=== PATIENT | male | born 1965 | race Caucasian/White ===

== ENCOUNTER → 2016-11-10 | Outpatient (CLI) | payer BC ==
[~2016-11-10] MED LIST: AMLO5TAB2 PO; BUPR-79 PO; CHOL2000 PO; ESCI1TAB9 PO; FRRS300 PO; HYDR25TA4 PO; LEVO75TA5 PO; LISI-461 PO; LISI-725 PO; MULT-506 PO; MULTTAB PO; RTL20 PO; TRAM-10 PO
[2016-11-10 14:56] LABS: HEMATOCRIT 39.4 % (42-52); MEAN CELL VOLUME 90.6 fL (80-100); MEAN CORPUSCULAR HEMOGLOBIN 32.4 pg (25-34); MEAN CORPUSCULAR HGB CONC 35.8 g/dl (32-36); MEAN PLATELET VOLUME 10.2 fL (7.4-10.4); PLATELET COUNT 276 K/uL (130-400); RED BLOOD COUNT 4.35 M/uL (4.7-6.1); URINE APPEARANCE CLEAR (CLEAR); URINE BILIRUBIN NEG (NEG); URINE COLOR YELLOW; URINE EPITHELIAL CELL AUTO 0-5 /lpf (0-5); URINE NITRITE NEG (NEG); URINE SPECIFIC GRAVITY 1.009 (1.000-1.030); UROBILINOGEN NEG (NEG); WHITE BLOOD COUNT 8.98 K/uL (4.8-10.8)
[2016-11-10 15:04] LABS: ALT/SGPT 38 U/L (12-78); AST/SGOT 26 U/L (15-37); BLOOD UREA NITROGEN 54 mg/dl (7-18); BUN/CREATININE RATIO 15.3 (10-20); CALCIUM 9.2 mg/dl (8.5-10.1); CARBON DIOXIDE 24 mmol/L (21-32); CHLORIDE 106 mmol/L (98-107); GLUCOSE 103 mg/dl (70-99); POTASSIUM 4.8 mmol/L (3.5-5.1); SODIUM 139 mmol/L (136-145)
[2016-11-10 15:06] LABS: ALB/GLOB RATIO 1.1 (0.9-2); ALKALINE PHOSPHATASE 59 U/L (45-117)
[2016-11-10 15:08] LABS: MANUAL MICROSCOPIC REQUIRED? NO; REVIEW REQ? NO
[2016-11-10 15:11] LABS: HEPATITIS B AB POS
[2016-11-10 15:21] LABS: URINE PROTIEN/CREAT RATIO 0.7 (0-0.2); URINE TOTAL PROTEIN 64.8 mg/dl (0-11.9)
== END | disposition home or self-care (01) ==
LOC: C.LAB1850 13:28
PROVIDERS: ATTEND Surgery
DX: Z01.818 Encounter for other preprocedural examination (principal); I12.9 Hypertensive chronic kidney disease with stage 1 through stage 4 chronic kidney disease, or unspecified chronic kidney disease; N18.4 Chronic kidney disease, stage 4 (severe); Q61.2 Polycystic kidney, adult type; E78.00 Pure hypercholesterolemia, unspecified

== ENCOUNTER → 2016-12-14 | Day surgery (SDC) | payer BC, OTHER ==
[2016-12-03 08:59] VITALS: BMI 28.0
--- NOTE | 2016-12-03 09:34 | PAT Medication Instructions ---
Service Date Dec 03, 2016. Current Home Medication List Amlodipine Besylate (Norvasc), 2.5 MG PO QAM Bupropion (Wellbutrin Sr), 150 MG PO am/noon Cholecalciferol (Vitamin D3), 1 CAP PO QAM Escitalopram Oxalate (Lexapro), 10 MG PO QAM Hydrochlorothiazide (Hctz), 25 MG PO QAM Levothyroxine Sodium (Levothyroxine Sodium), 1 TAB PO 0300 Lisinopril (Zestril), 20 MG PO QAM Lisinopril (Zestril), 10 MG PO QPM Methylphenidate (Ritalin), 20 MG PO AM/NOON Multivitamin (Multivitamin), 1 TAB PO QAM Medication Instructions For Your Scheduled Surgery - Hold the following medications the morning of surgery: Hydrochlorothiazide (Hctz), 25 MG PO QAM Lisinopril (Zestril), 20 MG PO QAM Multivitamin (Multivitamin), 1 TAB PO QAM Cholecalciferol (Vitamin D3), 1 CAP PO QAM Methylphenidate (Ritalin), 20 MG PO AM/NOON - TAKE the following medications the morning of surgery with a sip of water OTHERWISE NOTHING TO EAT OR DRINK AFTER MIDNIGHT: Amlodipine Besylate (Norvasc), 2.5 MG PO QAM Bupropion (Wellbutrin Sr), 150 MG PO am/noon Escitalopram Oxalate (Lexapro), 10 MG PO QAM Levothyroxine Sodium (Levothyroxine Sodium), 1 TAB PO 0300 - Hold the following medications the evening before surgery: Lisinopril (Zestril), 10 MG PO QPM If you have any questions please call us at [phone] (Karin Tariq PA-C) or [phone] or [phone]
[2016-12-03 09:54] LABS: BASO % 0.5 %; BASO ABS # 0.03 K/uL (0-0.2); COMPLETE YES; EOS % 3.1 %; HEMATOCRIT 38.6 % (42-52); IG% 0.2 %; LYMPH % 25.8 %; MEAN CELL VOLUME 91.9 fL (80-100); MEAN CORPUSCULAR HEMOGLOBIN 32.1 pg (25-34); MEAN PLATELET VOLUME 10.1 fL (7.4-10.4); NEUT % 64.4 %; PLATELET COUNT 220 K/uL (130-400); WHITE BLOOD COUNT 5.81 K/uL (4.8-10.8)
[2016-12-03 10:03] LABS: PARTIAL THROMBOPLASTIN RATIO 1.1; PROTHROMBIN TIME (PATIENT) 10.9 SECONDS (9.0-12.0)
[2016-12-03 10:15] LABS: BUN/CREATININE RATIO 12.4 (10-20); CREATININE 3.6 mg/dl (0.60-1.40); POTASSIUM 4.9 mmol/L (3.5-5.1)
--- NOTE | 2016-12-03 11:07 | DIAGNOSTIC IMAGING REPORT ---
CHEST PREADMISSION(PA/LAT) HISTORY: Preop. COMPARISON: Chest 10/09/2012. FINDINGS: There is again noted suture material within the lung apices. Otherwise, the lungs are clear. Stable mild right apical pleural thickening. No pleural effusions. No pneumothorax. The heart is normal in size. IMPRESSION: No significant change compared to the prior study. No acute process. Electronically signed by: Davon Wells M.D. 12/03/2016 11:05 AM Dictated Date/Time: 12/03/2016 11:03 AM
[~2016-12-14] VITALS: Ht 180.3 cm; Wt 92.7 kg
[~2016-12-14] MED LIST changes: +ATROPINE SULFATE 0.1 MG/ML 5ML SYR IV PRN; +BUPIVACAINE/EPINEPHRINE 0.5% MPF 1:200,000 30 ML VIAL INFIL ONE; +CEFAZOLIN IV 1,000 MG in DEXTROSE 5% 50ML 50 ML IV ONE; +CEFAZOLIN SOD 1 GM VIAL ONE; +EpHEDrine SULFATE INJ 50 MG/ML AMP IV PRN; +FENTANYL CITRATE INJ 50 MCG/1 ML 2 ML VIAL IV PRN; +FENTANYL CITRATE INJ 50 MCG/1 ML 2 ML VIAL ONE; -FRRS300 PO; +GELATIN SPONGE 12-7MM EXT ONE; +HEPARIN SOD (PORCINE) 1000 UNIT/ML 10 ML VIAL IV ONE; +LIDOCAINE HCL 1% 20 ML VIAL INFIL ONE; +MIDAZOLAM HCL 1 MG/ML 2ML VIAL ONE; -MULTTAB PO; +ONDANSETRON INJ 2 MG/ML 2 ML VIAL IV PRN; +OXYCODONE/ACETAMINOPHEN 5-325 TAB PO PRN; +PROPOFOL IV EMULSION 10 MG/ML 20 ML VIAL IV ONE; +SODIUM CHLORIDE 0.9% 1000ML 1,000 ML IV SCH; +THROMBIN FOR SOLN 20000 UNIT KIT EXT ONE
--- NOTE | 2016-12-14 06:10 | History and Physical ---
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 His creatinine has been slowly increasing. He also has polycystic liver. He has no history of cerebrovascular aneurysms, mitral valve prolapse, aortic aneurysms or diverticulosis. He is hypertensive, but it is controlled at this time. He was hospitalized for acute cholecystitis in 2012 and underwent laparoscopic cholecystectomy. It was complicated by pancreatitis and kidney injury, and he subsequently recovered with conservative management. He denies any history of cerebrovascular insufficiency, and denies any history of claudication. Denies any history of chest pain. ALLERGIES: No known drug allergies. MEDICATIONS: Advair Diskus, amlodipine, bupropion, clonazepam, Finacea, hydrochlorothiazide, levothyroxine, Lexapro, lisinopril, multivites, ProAir HFA 90 and vitamin D3. PAST MEDICAL HISTORY: Positive for hypertension, chronic kidney disease, polycystic kidneys. Positive PPD, hypertension, depression, migraine headaches , hypercholesterolemia. PAST SURGICAL HISTORY: Positive for cholecystectomy, bilateral thoracotomies for apical blebs. FAMILY HISTORY: Positive for heart disease, diabetes, cancer, stroke. SOCIAL HISTORY: He does not smoke. He drinks 2-4 drinks per week. REVIEW OF SYSTEMS: Ten systems were reviewed and the only positive findings were occasional heartburn and occasional diarrhea. PHYSICAL EXAMINATION: The patient is awake, oriented x3. He is in no apparent distress. Normal body habitus. Blood pressure 152/96 on the right, 146/102 on the left. Lungs are clear. Heart regular rate and rhythm. Abdominal exam showed a rotund abdomen. Upper extremity exam shows good pulses throughout the upper extremities. He has good cephalic veins on the right. Left arm has a good cephalic vein down to the mid forearm. The cephalic vein at the wrist was small. IMPRESSION: 1. End-stage renal disease. 2. Polycystic disease. 3. Hypertension. 4. Hypercholesterolemia. PLAN AND RECOMMENDATIONS: At this point we recommended a left arm AV fistula being he is right hand dominant, with ultrasound at the cephalic vein and at the point of the cephalic vein getting larger. We will do the anastomoses at that level. On the mapping it appears that it would be the mid to distal forearm. He understands the risks, options and benefits, and agrees with having this procedure.
--- NOTE | 2016-12-14 10:54 | History & Physical Bridge Note ---
H&P Re-Evaluation Bridge Note: I have examined the patient, reviewed the History & Physical and in the interval since the performance of the History & Physical I have noted the following changes of clinical significance: No changes noted
[2016-12-14 11:20] VITALS: BP 135/72; PULSE 65; TEMP 36.6; O2SAT 99; Ht 180.3 cm; Wt 92.7 kg
[2016-12-14 11:38] LABS: BUN/CREATININE RATIO 13.5 (10-20); CALCIUM 9.2 mg/dl (8.5-10.1); POTASSIUM 3.9 mmol/L (3.5-5.1)
--- NOTE | 2016-12-14 13:11 | [facility] Post Operative Brief Note ---
Immediate Operative Summary Operative Date Dec 14, 2016. Pre-Operative Diagnosis End Stage Renal Disease Post-Operative Diagnosis Same as preoperative. Procedure(s) Performed Left Forearm Arteriovenous Fistula Surgeon Liquid Hydrogen Plant Operator Surgeon(s) Anna Lance Estimated Blood Loss 20ML Findings good bruit to doppler Specimens None per surgeon. Anesthesia MAC Complication(s) None Disposition Recovery Room / PACU
--- NOTE | 2016-12-14 13:14 | Discharge Instructions ---
Discharge Instructions Visit Reason for Visit: End Stage Renal Disease Discharge Discharge Diagnosis / Problem: End stage renal disease Discharge Goals Goal(s): Therapeutic intervention Activity Recommendations Activity Limitations: per Instructions/Follow-up section Anesthesia . Post Anesthesia Instructions: If you have had General Anesthesia or IV Sedation: * Do not drive today. * Resume driving when surgeon permits. * Do not make important decisions or sign legal documents today. * Call surgeon for: 1. Temperature elevations greater than 101 degrees F. 2. Uncontrollable pain. 3. Excessive bleeding. 4. Persistent nausea and vomiting. 5. Medication intolerance (nausea, vomiting or rash). * For nausea and vomiting use only clear liquids such as: tea, soda, bouillon until nausea subsides, then gradually increase diet as tolerated. * If you have any concerns or questions, call your surgeon's office. If physician is unavailable and it is an emergency, call 911 or go to the nearest emergency room. . Instructions / Follow-Up Instructions / Follow-Up Call [phone] to schedule a follow up appointment if one not already scheduled. ACTIVITY RECOMMENDATIONS: See Above SPECIAL CARE INSTRUCTIONS: Call your doctor if: * Temperature above 101 degrees * Pain not relieved by pain medicine ordered * There is increased drainage or redness from any incision * You have any unanswered questions or concerns. Diet Recommendations Recommended Home Diet: resume previous diet Procedures Procedures Performed: Left Forearm Arteriovenous Fistula Pending Studies Studies pending at discharge: no Medical Emergencies . Who to Call and When: Medical Emergencies: If at any time you feel your situation is an emergency, please call 911 immediately. . Non-Emergent Contact Non-Emergency issues call your: Surgeon . . "Provider Documentation" section prepared by Felipe Shay.
--- NOTE | 2016-12-14 13:52 | Anesthesiology Progress Note ---
Anesthesia Post Op Note Date & Time Dec 14, 2016 at 13:52 Vital Signs Pain Intensity: 2 Vital Signs Past 12 Hours Date Time Temp Pulse Resp B/P Pulse Ox O2 Delivery O2 Flow Rate FiO2 12/14/16 13:42 59 12 12/14/16 13:42 59 12 12/14/16 13:38 97/68 12/14/16 13:37 61 17 12/14/16 13:37 62 17 12/14/16 13:33 100/68 12/14/16 13:32 61 10 91 12/14/16 13:32 60 10 12/14/16 13:28 104/67 12/14/16 13:27 64 13 12/14/16 13:27 64 13 12/14/16 13:27 36.2 70 14 100/70 97 Room Air 12/14/16 11:20 36.6 65 18 135/72 99 Room Air Notes Mental Status: alert / awake / arousable, participated in evaluation Pt Amnestic to Procedure: Yes Nausea / Vomiting: adequately controlled Pain: adequately controlled Airway Patency, RR, SpO2: stable & adequate BP & HR: stable & adequate Hydration State: stable & adequate Anesthetic Complications: no major complications apparent
--- NOTE | 2016-12-14 13:58 | Progress Note ---
Progress Note I assisted Dr Shay with Bandar Naomie's Left Forearm Arteriovenous Fistula on 12/14/16, d/t lack of resident availability.
[2016-12-14 14:00] VITALS: BP 118/67; PULSE 61; TEMP 36.8; O2SAT 93
--- NOTE | 2016-12-14 14:05 | OPERATIVE REPORT ---
DATE OF OPERATION: 12/14/2016 PREOPERATIVE DIAGNOSIS: Endstage renal disease. POSTOPERATIVE DIAGNOSIS: Same. PROCEDURE: Left forearm AV fistula creation. SURGEON: Dr. Shay. EDUCATION ADMINISTRATIVE ASSISTANT: Anna Winter PA-C. ANESTHETIC: MAC. PROCEDURE INDICATIONS: This patient is a 51-year-old white male with polycystic multiorgan disease with endstage renal disease in need of a fistula for dialysis. He is not on dialysis at this time. He understood the risks, options and benefits and agreed to have this procedure. The patient has a cephalic vein in the left arm in the mid portion. OPERATION AND FINDINGS: The patient was taken to the operating room and placed in supine position. We did image the left arm and found where the cephalic vein tapered down and was not usable. This was then marked. Left arm was then prepped and draped. Local anesthetic was administered. Longitudinal incision was made over the cephalic vein in the midforearm. This was carried down to where the cephalic vein was identified. It split into 2 branches at that level. Branches were then ligated and divided. The radial artery was then dissected free. It was extremely small, approximately 2 mm in size. The cephalic vein was then bevelled. The radial artery was then clamped proximally and distally. Longitudinal arteriotomy was then made. The cephalic vein was anastomosed to the radial artery using a 7-0 Prolene suture in the usual vascular fashion. Prior to completing the closure, backbleeding and forward bleeding was allowed to occur. Final few sutures were then placed and securely tied. Clamps were removed from the radial artery. The vein distended up nicely. There was good Doppler signals heard up to the antecubital fossa. Good Doppler signals were heard in the hand. The fingers were pink. Adequate hemostasis was noted of the anastomosis in the wound. The wound was then closed in the usual fashion using running 3-0 Vicryl suture for the subcutaneous layer and a running 4-0 subcuticular Vicryl suture for the skin edges. Dermabond was used for dressing. Anna Winter assisted due to lack of resident availability. The patient left the operating room in satisfactory condition and tolerated the procedure well. I attest to the content of the Intraoperative Record and any orders documented therein. Any exceptio ns are noted below.
[2016-12-14 14:29] VITALS: BP 144/92; PULSE 62; O2SAT 96
[2016-12-14 15:00] VITALS: BP 155/80; PULSE 64; TEMP 36.9; O2SAT 95
== END | disposition home or self-care (01) ==
LOC: C.ACU 10:44
PROVIDERS: ATTEND Surgery Vascular Surgery
DX: N18.6 End stage renal disease (principal); I10 Essential (primary) hypertension; Q61.3 Polycystic kidney, unspecified; R76.11 Nonspecific reaction to tuberculin skin test without active tuberculosis; F32.9 Major depressive disorder, single episode, unspecified; G43.909 Migraine, unspecified, not intractable, without status migrainosus; E78.00 Pure hypercholesterolemia, unspecified; Z83.3 Family history of diabetes mellitus; Z82.3 Family history of stroke

== ENCOUNTER → 2016-12-15 | Outpatient (CLI) | payer BC ==
[~2016-12-15] MED LIST changes: -ATROPINE SULFATE 0.1 MG/ML 5ML SYR IV PRN; -BUPIVACAINE/EPINEPHRINE 0.5% MPF 1:200,000 30 ML VIAL INFIL ONE; +BUPIVACAINE/EPINEPHRINE 0.5% MPF 1:200,000 30 ML VIAL ONE; -CEFAZOLIN IV 1,000 MG in DEXTROSE 5% 50ML 50 ML IV ONE; -CEFAZOLIN SOD 1 GM VIAL ONE; -EpHEDrine SULFATE INJ 50 MG/ML AMP IV PRN; -FENTANYL CITRATE INJ 50 MCG/1 ML 2 ML VIAL IV PRN; -FENTANYL CITRATE INJ 50 MCG/1 ML 2 ML VIAL ONE; -GELATIN SPONGE 12-7MM EXT ONE; +GELATIN SPONGE 12-7MM ONE; -HEPARIN SOD (PORCINE) 1000 UNIT/ML 10 ML VIAL IV ONE; +HEPARIN SOD (PORCINE) 1000 UNIT/ML 10 ML VIAL ONE; -LIDOCAINE HCL 1% 20 ML VIAL INFIL ONE; +LIDOCAINE HCL 1% 20 ML VIAL ONE; -MIDAZOLAM HCL 1 MG/ML 2ML VIAL ONE; -ONDANSETRON INJ 2 MG/ML 2 ML VIAL IV PRN; -OXYCODONE/ACETAMINOPHEN 5-325 TAB PO PRN; -PROPOFOL IV EMULSION 10 MG/ML 20 ML VIAL IV ONE; -SODIUM CHLORIDE 0.9% 1000ML 1,000 ML IV SCH; -THROMBIN FOR SOLN 20000 UNIT KIT EXT ONE; +THROMBIN FOR SOLN 20000 UNIT KIT ONE
--- NOTE | 2016-12-15 13:27 | DIAGNOSTIC IMAGING REPORT ---
CT SCAN OF THE ABDOMEN AND PELVIS WITHOUT IV CONTRAST CLINICAL HISTORY: Autosomal dominant polycystic kidney disease. Pretransplant examination. COMPARISON STUDY: Abdominal CT dated 04/12/2014. TECHNIQUE: CT scan of the abdomen and pelvis is performed from the lung bases to the proximal femora. Images are reviewed in the axial, sagittal, and coronal planes. IV contrast was not administered for this examination. Automated dose control exposure was utilized. CT DOSE: 789.72 mGy.cm FINDINGS: Lung bases: The heart is normal in size and without pericardial effusion. The lung bases are clear. Liver: The unenhanced liver is enlarged, measuring 22 cm in length. The kidneys are infiltrated by too numerous to count cysts. This is consistent with the reported history of autosomal dominant polycystic kidney disease and has not significant changed from previous. There is no intrahepatic biliary ductal dilatation. Gallbladder: Surgically absent noting clips in the gallbladder fossa. Spleen: Normal in size and attenuation. Pancreas: Unremarkable. Adrenal glands: Unremarkable. Kidneys: The unenhanced kidneys are enlarged and demonstrate cortical atrophy. The right kidney measures approximately 22 cm in length, and the left kidney measures approximately 23 cm in length. The kidneys are infiltrated by too numerous to count cysts consistent with the reported history of a dominant cystic kidney disease. This is similar appearance to prior examinations. Some of these cysts appear hyperdense, likely related to protein/hemorrhage. There are nonobstructing bilateral renal calculi. Abdominal vasculature: The abdominal aorta is normal in course and caliber noting mild atherosclerotic calcification. Bowel: The small bowel and colon are normal in course and caliber. There are scattered colonic diverticula without CT evidence of acute diverticulitis. The appendix is well-visualized and normal. Peritoneum: There is no intraperitoneal free air or abdominal ascites. There is a small fat-containing umbilical hernia. Lymphadenopathy: None. Pelvic viscera: The bladder, prostate, and seminal vesicles are normal as visualized. Surgical clips are noted along the spermatic cord bilaterally. Skeletal structures: No lytic or blastic lesions are seen. There is a right-sided pars defect at L5. IMPRESSION: 1. The appearance of the kidneys is consistent with the reported history of autosomal dominant polycystic kidney disease. Findings are similar to the 04/12/2014 examination. See above. 2. The liver is mildly enlarged and infiltrated by numerous cysts. This is also unchanged. 3. There are small bilateral nonobstructing renal calculi. 4. Additional findings as above. Electronically signed by: Manuel Dinh M.D. 12/15/2016 1:26 PM Dictated Date/Time: 12/15/2016 1:18 PM
== END | disposition home or self-care (01) ==
LOC: C.CTS 10:50
PROVIDERS: ATTEND Internal Medicine Nephrology
DX: I12.9 Hypertensive chronic kidney disease with stage 1 through stage 4 chronic kidney disease, or unspecified chronic kidney disease (principal); N18.4 Chronic kidney disease, stage 4 (severe); Q61.2 Polycystic kidney, adult type; N20.0 Calculus of kidney

== ENCOUNTER → 2017-01-13 | Outpatient (CLI) | payer BC ==
[~2017-01-13] MED LIST changes: -BUPIVACAINE/EPINEPHRINE 0.5% MPF 1:200,000 30 ML VIAL ONE; -GELATIN SPONGE 12-7MM ONE; -HEPARIN SOD (PORCINE) 1000 UNIT/ML 10 ML VIAL ONE; -LIDOCAINE HCL 1% 20 ML VIAL ONE; -THROMBIN FOR SOLN 20000 UNIT KIT ONE
[2017-01-13 12:09] LABS: HEMATOCRIT 40.8 % (42-52); MEAN CELL VOLUME 91.1 fL (80-100); MEAN CORPUSCULAR HEMOGLOBIN 31.9 pg (25-34); MEAN PLATELET VOLUME 10.2 fL (7.4-10.4); PLATELET COUNT 279 K/uL (130-400); RED BLOOD COUNT 4.48 M/uL (4.7-6.1); WHITE BLOOD COUNT 6.29 K/uL (4.8-10.8)
[2017-01-13 12:18] LABS: ALT/SGPT 30 U/L (12-78); BLOOD UREA NITROGEN 42 mg/dl (7-18); BUN/CREATININE RATIO 11.6 (10-20); CALCIUM 9.7 mg/dl (8.5-10.1); CARBON DIOXIDE 27 mmol/L (21-32); CHLORIDE 103 mmol/L (98-107); GLUCOSE 98 mg/dl (70-99); POTASSIUM 3.7 mmol/L (3.5-5.1); SODIUM 140 mmol/L (136-145)
[2017-01-13 12:20] LABS: URINE APPEARANCE CLEAR (CLEAR); URINE BILIRUBIN NEG (NEG); URINE COLOR YELLOW; URINE EPITHELIAL CELL AUTO 0-5 /lpf (0-5); URINE NITRITE NEG (NEG); URINE PH 5.5 (4.5-7.5); URINE SPECIFIC GRAVITY 1.006 (1.000-1.030); UROBILINOGEN NEG (NEG)
[2017-01-13 12:21] LABS: ALKALINE PHOSPHATASE 58 U/L (45-117); AST/SGOT 39 U/L (15-37)
[2017-01-13 12:31] LABS: MANUAL MICROSCOPIC REQUIRED? NO; REVIEW REQ? NO
[2017-01-13 12:35] LABS: URINE PROTIEN/CREAT RATIO 1.2 (0-0.2); URINE TOTAL PROTEIN 60.2 mg/dl (0-11.9)
[2017-01-15 10:29] LABS: QUANTIF TB AG-NIL <0.00 IU/ML; QUANTIFERON NIL 0.13 IU/ML
== END | disposition home or self-care (01) ==
LOC: C.LAB 10:46
PROVIDERS: ATTEND Internal Medicine Nephrology
DX: Q61.2 Polycystic kidney, adult type (principal); I12.9 Hypertensive chronic kidney disease with stage 1 through stage 4 chronic kidney disease, or unspecified chronic kidney disease; N18.4 Chronic kidney disease, stage 4 (severe)

== ENCOUNTER → 2017-03-25 | Outpatient (CLI) | payer BC ==
[2017-03-25 09:58] LABS: HEMATOCRIT 39.7 % (42-52); MEAN CELL VOLUME 92.3 fL (80-100); MEAN CORPUSCULAR HEMOGLOBIN 32.1 pg (25-34); MEAN CORPUSCULAR HGB CONC 34.8 g/dl (32-36); MEAN PLATELET VOLUME 9.8 fL (7.4-10.4); PLATELET COUNT 219 K/uL (130-400)
[2017-03-25 12:46] LABS: CHOLESTEROL/HDL RATIO 4.5; THYROID STIMULATING HORMONE 0.307 uIu/ml (0.300-4.500)
[2017-03-25 12:56] LABS: BLOOD UREA NITROGEN 46 mg/dl (7-18); BUN/CREATININE RATIO 12.9 (10-20); CARBON DIOXIDE 27 mmol/L (21-32); CHLORIDE 107 mmol/L (98-107); GLUCOSE 98 mg/dl (70-99); SODIUM 142 mmol/L (136-145)
[2017-03-25 12:57] LABS: PHOSPHORUS 3.3 mg/dl (2.5-4.9)
== END | disposition home or self-care (01) ==
LOC: C.LAB 09:28
PROVIDERS: ATTEND Internal Medicine Nephrology
DX: E03.9 Hypothyroidism, unspecified (principal); N18.9 Chronic kidney disease, unspecified; K76.89 Other specified diseases of liver

== ENCOUNTER → 2017-03-30 | Outpatient (CLI) | payer BC ==
--- NOTE | 2017-04-22 11:04 | CODING QUERY NO DIAGNOSIS ---
TREATMENT RENDERED WITHOUT A DIAGNOSIS 63 To promote full compliance with coding requirements relating to patient care, physician participation is requested in all cases of recordak operator uncertainty. Please assist us with providing a diagnosis/symptom for the test(s) below: A diagnosis/symptom was not documented on your Order. A valid diagnosis/symptom is required to bill all insurances. Please remember that we are unable to code a diagnosis of rule out, probable, possible, questionable, or suspected. DOS 03/30/17 Tests that require a diagnosis: * LAB DIAGNOSIS: *WE RECEIVED YOUR LETTER BACK WITH A SIGNATURE BUT NO DX ON IT, CAN YOU PLEASE ADD A DX, THANK YOU Provider Signature: Date: Thank you Reyna Jara [facility] Information Management Once completed, please kindly fax back to [phone] For questions please call [phone]
== END | disposition home or self-care (01) ==
LOC: C.LAB1850 15:25
PROVIDERS: ATTEND Surgery
DX: N18.6 End stage renal disease (principal)

== ENCOUNTER → 2017-06-28 | Outpatient (CLI) | payer BC ==
[~2017-06-28] MED LIST changes: -TRAM-10 PO
[2017-06-28 09:40] LABS: HEMATOCRIT 39.6 % (42-52); MEAN CORPUSCULAR HEMOGLOBIN 32.2 pg (25-34); MEAN CORPUSCULAR HGB CONC 35.4 g/dl (32-36); MEAN PLATELET VOLUME 9.8 fL (7.4-10.4); PLATELET COUNT 241 K/uL (130-400); RED BLOOD COUNT 4.35 M/uL (4.7-6.1); WHITE BLOOD COUNT 5.83 K/uL (4.8-10.8)
[2017-06-28 09:46] LABS: URINE APPEARANCE CLEAR (CLEAR); URINE BILIRUBIN NEG (NEG); URINE COLOR YELLOW; URINE EPITHELIAL CELL AUTO 0-5 /lpf (0-5); URINE NITRITE NEG (NEG); URINE PH 5.5 (4.5-7.5); URINE SPECIFIC GRAVITY 1.014 (1.000-1.030); UROBILINOGEN NEG (NEG)
[2017-06-28 09:48] LABS: MANUAL MICROSCOPIC REQUIRED? NO; REVIEW REQ? NO
[2017-06-28 10:02] LABS: BLOOD UREA NITROGEN 46 mg/dl (7-18); BUN/CREATININE RATIO 11.8 (10-20); CALCIUM 9.5 mg/dl (8.5-10.1); CARBON DIOXIDE 27 mmol/L (21-32); CHLORIDE 106 mmol/L (98-107); GLUCOSE 88 mg/dl (70-99); PHOSPHORUS 3.6 mg/dl (2.5-4.9); POTASSIUM 4.5 mmol/L (3.5-5.1); SODIUM 140 mmol/L (136-145)
[2017-06-28 10:03] LABS: CHOLESTEROL/HDL RATIO 4.6; THYROID STIMULATING HORMONE 1.09 uIu/ml (0.300-4.500)
[2017-06-28 10:12] LABS: URINE PROTIEN/CREAT RATIO 0.5 (0-0.2); URINE TOTAL PROTEIN 49.8 mg/dl (0-11.9)
== END | disposition home or self-care (01) ==
LOC: C.LAB 08:18
PROVIDERS: ATTEND Internal Medicine Nephrology
DX: Q61.2 Polycystic kidney, adult type (principal); I12.9 Hypertensive chronic kidney disease with stage 1 through stage 4 chronic kidney disease, or unspecified chronic kidney disease; N18.4 Chronic kidney disease, stage 4 (severe); N25.81 Secondary hyperparathyroidism of renal origin; E03.9 Hypothyroidism, unspecified; K76.89 Other specified diseases of liver

== ENCOUNTER → 2017-09-14 | Outpatient (CLI) | payer BC ==
[2017-09-14 18:54] LABS: HEMATOCRIT 40.4 % (42-52); MEAN CELL VOLUME 92.2 fL (80-100); MEAN CORPUSCULAR HGB CONC 34.7 g/dl (32-36); MEAN PLATELET VOLUME 9.9 fL (7.4-10.4); PLATELET COUNT 222 K/uL (130-400); RED BLOOD COUNT 4.38 M/uL (4.7-6.1); WHITE BLOOD COUNT 6.36 K/uL (4.8-10.8)
[2017-09-14 18:57] LABS: URINE APPEARANCE CLEAR (CLEAR); URINE BILIRUBIN NEG (NEG); URINE COLOR YELLOW; URINE EPITHELIAL CELL AUTO 0-5 /lpf (0-5); URINE NITRITE NEG (NEG); URINE PH 5.5 (4.5-7.5); URINE SPECIFIC GRAVITY 1.012 (1.000-1.030); UROBILINOGEN NEG (NEG); ZZUR CULT IF INDIC CLEAN CATCH NO
[2017-09-14 18:59] LABS: MANUAL MICROSCOPIC REQUIRED? NO; REVIEW REQ? NO
[2017-09-14 19:12] LABS: ALT/SGPT 36 U/L (12-78); BLOOD UREA NITROGEN 43 mg/dl (7-18); BUN/CREATININE RATIO 12.1 (10-20); CALCIUM 9.3 mg/dl (8.5-10.1); CARBON DIOXIDE 28 mmol/L (21-32); CHLORIDE 103 mmol/L (98-107); CREATININE 3.57 mg/dl (0.60-1.40); GLUCOSE 87 mg/dl (70-99); POTASSIUM 4.1 mmol/L (3.5-5.1); SODIUM 139 mmol/L (136-145)
[2017-09-14 19:15] LABS: ALKALINE PHOSPHATASE 52 U/L (45-117); AST/SGOT 24 U/L (15-37)
[2017-09-14 19:39] LABS: CREATININE, URINE 65.8 mg/dl; URINE TOTAL PROTEIN 65.6 mg/dl (0-11.9)
== END | disposition home or self-care (01) ==
LOC: C.LAB 18:28
PROVIDERS: ATTEND Internal Medicine Nephrology
DX: Q61.2 Polycystic kidney, adult type (principal); I10 Essential (primary) hypertension; N18.4 Chronic kidney disease, stage 4 (severe); N25.81 Secondary hyperparathyroidism of renal origin

== ENCOUNTER → 2017-12-21 | Outpatient (CLI) | payer BC ==
[2017-12-21 13:14] LABS: MEAN CELL VOLUME 90.7 fL (80-100); MEAN CORPUSCULAR HEMOGLOBIN 32.4 pg (25-34); MEAN CORPUSCULAR HGB CONC 35.7 g/dl (32-36); MEAN PLATELET VOLUME 10.1 fL (7.4-10.4); PLATELET COUNT 242 K/uL (130-400); RED CELL DISTRIBUTION WIDTH CV 12.5 % (11.5-14.5); RED CELL DISTRIBUTION WIDTH SD 41.4 fL (36.4-46.3); WHITE BLOOD COUNT 4.97 K/uL (4.8-10.8)
[2017-12-21 13:47] LABS: ALBUMIN 4.4 gm/dl (3.4-5.0); ALT/SGPT 33 U/L (12-78); AST/SGOT 22 U/L (15-37); BLOOD UREA NITROGEN 61 mg/dl (7-18); CALCIUM 9.9 mg/dl (8.5-10.1); CARBON DIOXIDE 23 mmol/L (21-32); CREATININE 4.16 mg/dl (0.60-1.40); GLUCOSE 85 mg/dl (70-99); POTASSIUM 4.3 mmol/L (3.5-5.1); SODIUM 137 mmol/L (136-145)
[2017-12-21 13:49] LABS: ALKALINE PHOSPHATASE 52 U/L (45-117); TOTAL PROTEIN 8.3 gm/dl (6.4-8.2)
[2017-12-21 13:51] LABS: ALBUMIN 4.3 gm/dl (3.4-5.0); ALT/SGPT 33 U/L (12-78); AST/SGOT 23 U/L (15-37); BLOOD UREA NITROGEN 60 mg/dl (7-18); CALCIUM 9.4 mg/dl (8.5-10.1); CARBON DIOXIDE 23 mmol/L (21-32); GLUCOSE 84 mg/dl (70-99); POTASSIUM 4.2 mmol/L (3.5-5.1); SODIUM 137 mmol/L (136-145)
[2017-12-21 13:54] LABS: ALKALINE PHOSPHATASE 55 U/L (45-117); CHOLESTEROL 231 mg/dl (0-200); LDL CHOLESTEROL CALCULATED 153 mg/dl; TOTAL PROTEIN 8.3 gm/dl (6.4-8.2)
== END | disposition home or self-care (01) ==
LOC: C.LAB 11:55
PROVIDERS: ATTEND Internal Medicine Gastroenterology
DX: Q61.2 Polycystic kidney, adult type (principal); I10 Essential (primary) hypertension; N18.4 Chronic kidney disease, stage 4 (severe); N25.81 Secondary hyperparathyroidism of renal origin; K21.9 Gastro-esophageal reflux disease without esophagitis; Q44.6 Cystic disease of liver; R63.8 Other symptoms and signs concerning food and fluid intake; Z00.00 Encounter for general adult medical examination without abnormal findings; E78.5 Hyperlipidemia, unspecified

== ENCOUNTER → 2018-03-06 | Outpatient (CLI) | payer BC ==
[2018-03-06 16:47] LABS: HEMATOCRIT 38.5 % (42-52); HEMOGLOBIN 13.8 g/dL (14.0-18.0); MEAN CORPUSCULAR HEMOGLOBIN 32.6 pg (25-34); MEAN CORPUSCULAR HGB CONC 35.8 g/dl (32-36); MEAN PLATELET VOLUME 9.6 fL (7.4-10.4); PLATELET COUNT 265 K/uL (130-400); RED CELL DISTRIBUTION WIDTH CV 12.1 % (11.5-14.5); RED CELL DISTRIBUTION WIDTH SD 40.4 fL (36.4-46.3); WHITE BLOOD COUNT 5.82 K/uL (4.8-10.8)
[2018-03-06 17:07] LABS: ALBUMIN 3.9 gm/dl (3.4-5.0); ALT/SGPT 35 U/L (12-78); AST/SGOT 21 U/L (15-37); BLOOD UREA NITROGEN 55 mg/dl (7-18); CALCIUM 8.6 mg/dl (8.5-10.1); CARBON DIOXIDE 29 mmol/L (21-32); CREATININE 4.07 mg/dl (0.60-1.40); GLUCOSE 88 mg/dl (70-99); POTASSIUM 4.2 mmol/L (3.5-5.1); SODIUM 139 mmol/L (136-145)
[2018-03-06 17:09] LABS: ALKALINE PHOSPHATASE 61 U/L (45-117); TOTAL PROTEIN 7.8 gm/dl (6.4-8.2)
== END | disposition home or self-care (01) ==
LOC: C.LAB 16:11
PROVIDERS: ATTEND Internal Medicine Nephrology
DX: Q61.2 Polycystic kidney, adult type (principal); I12.9 Hypertensive chronic kidney disease with stage 1 through stage 4 chronic kidney disease, or unspecified chronic kidney disease; N18.4 Chronic kidney disease, stage 4 (severe); E78.5 Hyperlipidemia, unspecified

== ENCOUNTER 2023-01-21 20:05 | Inpatient (IN) ==
--- NOTE | 2023-01-21 21:07 | Emergency Department Note ---
Impression & Plan Rupture, tendon, patellar ED Provider Note INFORMANT: Patient and EMS ED PROVIDER(S): James Sweet DO CHIEF COMPLAINT: Bilateral knee pain PLAN: Disposition: Admission Outpatient prescription management: none Discussion with: I spoke with the hospitalist, who will see the patient for admission/observation and further evaluation and consultation. MEDICAL DECISION MAKING: This is a 57-year-old male who presents to the ED with a chief complaint of bilateral knee pain. The patient states that he was going down some steps when his left knee suddenly popped. As he tried bracing himself, he states that the right knee then popped. He does have a history of patellar tendinitis in the past. He is seen [facility] orthopedics for this previously. The patient rep orts that he fell backwards onto the steps. He denies striking his head. No loss of consciousness. No other injuries. He presents by ambulance with his knees flexed, unable to straighten them due to significant pain. The patient has bilateral x-rays show no bony injury. There are some soft tissue swelling. CBC and chemistry panel does not show any abnormalities. Chronic kidney disease. The patient will be evaluated by the hospitalist with referral to orthopedics. Triage Nursing notes reviewed. Vital Signs: reviewed Prior /Outside records reviewed: none Differential diagnosis: Fracture, dislocation, tendon injury Diagnostics, as interpreted by me: 12 lead ECG: none Cardiac Monitoring ordered: none Medical decision rules: none Imaging studies: X-ray of the bilateral knees: No fracture or dislocation Procedures: none. Critical care: none. HPI: See MDM above. PAST MEDICAL HISTORY: See Below PAST SURGICAL HISTORY: See Below SOCIAL HISTORY: See Below HOME MEDICATIONS: See Below ALLERGIES: See Below VITALS: [See Below] PHYSICAL EXAMINATION: See MDM for positive findings otherwise unremarkable. CONSTITUTIONAL/VITAL SIGNS: Reviewed GENERAL:done as appropriate INTEGUMENTARY: done as appropriate HEAD: done as appropriate EYES: done as appropriate RESPIRATORY: done as appropriate CARDIOVASCULAR:done as appropriate GI/ABDOMEN:done as appropriate EXTREMITIES: done as appropriate NEUROLOGICAL: done as appropriate PSYCHIATRIC:done as appropriate MUSCULOSKELETAL:done as appropriate TRIAGE NURSING DOCUMENTATION REVIEWED. Past Med/Surg History Medical History Anxiety Gout History of gastroesophageal reflux (GERD) History of hypertension History of migraine Hypothyroidism Iron deficiency anemia Mandibular dysfunction "CHRONIC TIGHTENING" - recently referred to physical therapy Osteoarthritis Polycystic kidney disease, adult type (10/19/12) follows w/ Dr. Oshea; renal transplant 12/2018 Sleep apnea NO DEVICE Spontaneous pneumothorax H/O 2006 Surgical History History of arthroscopic knee surgery History of cholecystectomy History of mandibular surgery History of nephrectomy History of renal transplant 12/2018 [facility] History of surgery Left forearm AV fistula creation 12/14/2016 [facility] History of thoracotomy BL Family History Other No pertinent family history in first degree relatives Social History Smoking Status: Never smoker Second Hand Exposure: No; Hx Alcohol Use: Yes Alcohol type: beer, wine and hard liquor Hx Substance Use: No Preferred Language: Uzbek Communication Ability: Effective Visual Impairment: No Limitations Automotive Brake Specialist Required: No Beliefs That Will Affect Care: None Current Living Situation: Spouse Feels Safe at Home: Yes Assistive Devices: Glasses Allergies Allergies Allergy/AdvReac Type Severity Reaction Status Date / Time No Known Allergies Allergy Verified 11/17/22 14:38 Home Meds Home Medications Medication Instructions Recorded Confirmed cholecalciferol (vitamin D3) 50 2,000 unit PO QAM 10/11/18 11/17/22 mcg (2,000 unit) tablet (Vitamin D3) levothyroxine 75 mcg tablet 75 mcg PO UD 10/11/18 11/17/22 magnesium oxide 400 mg (241.3 mg 400 mg PO DAILY 04/20/19 11/17/22 magnesium) tablet L-Methylfolate 1 dose PO UD 10/22/19 11/17/22 bupropion HCl 150 mg tablet,12 hr 450 mg PO QAM 06/20/20 11/17/22 sustained-release methylphenidate HCl 20 mg tablet 20 mg PO TID 06/20/20 11/17/22 coenzyme Q10 100 mg capsule 100 mg PO DAILY 01/08/21 11/17/22 escitalopram oxalate 10 mg tablet 20 mg PO QAM 11/17/22 11/17/22 Previous Rx's Medication Instructions Recorded allopurinol 100 mg tablet 100 mg PO DAILY #90 tabs 01/21/20 rosuvastatin 10 mg tablet 10 mg PO DAILY #180 tabs 09/07/22 tacrolimus 1 mg capsule, 1 mg PO BID #180 caps 09/07/22 immediate-release mycophenolate mofetil 250 mg 750 mg PO BID #30 caps 09/14/22 capsule lisinopril 10 mg tablet 10 mg PO BID #180 tabs 11/22/22 Results & Data (ED) Vital Signs Vital Signs - 24 hr 01/21/23 20:42 01/21/23 20:50 01/21/23 20:44 Temperature 37.2 C Temperature Source Oral Pulse Rate 87 85 88 Pulse Rate from SpO2 Sensor 84 Respiratory Rate 18 17 Respiratory Effort / Characteristics Non-Labored Spontaneous Respiratory Depth Normal Respiratory Pattern Regular Blood Pressure 124/70 Blood Pressure Mean 88 Blood Pressure Position Lying Pulse Oximetry 95 96 Oxygen Delivery Method Room Air Sepsis Recent Fever Within 48 Hours No Sepsis New/Unexplained Change in Mental Status N/A Sepsis Action Taken by Nursing No Action Required 01/21/23 20:45 Temperature Temperature Source Pulse Rate 86 Pulse Rate from SpO2 Sensor 86 Respiratory Rate 18 Respiratory Effort / Characteristics Respiratory Depth Respiratory Pattern Blood Pressure Blood Pressure Mean Blood Pressure Position Pulse Oximetry 94 Oxygen Delivery Method Sepsis Recent Fever Within 48 Hours Sepsis New/Unexplained Change in Mental Status Sepsis Action Taken by Nursing Laboratory Data 01/21/23 20:46 01/21/23 20:46 Discharge Plan Visit Data Chief Complaint: Knee Injury/Pain Stated Complaint: Syncope, Fall, Knee Dislocation ED Provider: James Sweet Discharge Problem: Rupture, tendon, patellar Patient Disposition: Being Evaluated by Hospitalist Forms Stand Alone Forms: [facility], [facility], Virtual Emergency Department, Important Visit Information Prescriptions Prescriptions: No Action allopurinol 100 mg tablet 100 mg PO DAILY Qty: 90 3RF tacrolimus 1 mg capsule 1 mg PO BID Qty: 180 3RF rosuvastatin 10 mg tablet 10 mg PO DAILY Qty: 180 3RF mycophenolate mofetil 250 mg capsule 750 mg PO BID Qty: 30 1RF lisinopril 10 mg tablet 10 mg PO BID Qty: 180 3RF coenzyme Q10 100 mg capsule 100 mg PO DAILY levothyroxine 75 mcg tablet 75 mcg PO UD cholecalciferol (vitamin D3) [Vitamin D3] 2,000 unit Tablet 2,000 unit PO QAM methylphenidate HCl 20 mg tablet 20 mg PO TID Rx Instructions: take in am and at noon bupropion HCl 150 mg tablet sustained-release 12 hr 450 mg PO QAM escitalopram oxalate 10 mg tablet 20 mg PO QAM magnesium oxide 400 mg (241.3 mg magnesium) tablet 400 mg PO DAILY L-Methylfolate 1 dose PO UD Referrals Referrals: Bereket Nettles [Primary Care Provider] -
[2023-01-21 21:15] LABS: Basophils # (auto) 0.03 K/uL (0-0.2); Basophils % (auto) 0.6 %; Eosinophils # (auto) 0.09 K/uL (0-0.50); Eosinophils % (auto) 1.7 %; Hematocrit (blood only) 36.6 % (42.0-52.0); Hemoglobin 12.9 g/dl (14.0-18.0); Immature Granulocytes # (auto) 0.02 K/uL (0.01-0.20); Immature Granulocytes % (auto) 0.4 %; Lymphocytes # (auto) 1.06 K/uL (1.2-3.4); Lymphocytes % (auto) 19.4 %; Mean Corpuscular Hemoglobin 31.5 pg (25.0-34.0); Mean Corpuscular Hgb Conc 35.2 g/dL (32.0-36.0); Mean Corpuscular Volume 89.3 fL (80.0-100.0); Mean Platelet Volume 9.8 fL (9.4-12.4); Monocytes # (auto) 0.47 K/uL (0.11-0.59); Monocytes % (auto) 8.6 %; Neutrophils # (auto) 3.78 K/uL (1.40-6.50); Neutrophils % (auto) 69.3 %; Platelet Count 234 K/uL (130-400); RDW Coefficient of Variation 11.8 % (11.5-14.5); RDW Standard Deviation 37.7 fL (36.4-46.3); White Blood Count 5.45 K/ul (4.8-10.8)
[2023-01-21 21:25] LABS: BUN Creatinine Ratio 13.2 (10-20); Calcium 9.4 mg/dl (8.6-10.3); Creatinine Clr Calc Pharmacy 54.1 ml/min; Est GFR (Non-African American) 42.3 ml/min
--- NOTE | 2023-01-21 21:34 | XRay Report ---
RIGHT KNEE 2 VIEWS CLINICAL HISTORY: Fall. Right knee injury. FINDINGS: AP and crosstable lateral views of the right knee are compared to study dated 04/20/2019. Th e examination is degraded by inability to properly position the patient. The skeletal structures are well mineralized. No fracture is seen. The joint spaces are grossly maintained. There is no joint eff usion. Prepatellar soft tissue swelling is observed. IMPRESSION: Prepatellar soft tissue swelling with no acute bony abnormality identified.. Electronically signed by: Manuel Dinh M.D. 01/21/2023 9:33 PM
--- NOTE | 2023-01-21 21:35 | XRay Report ---
LEFT KNEE 2 VIEWS CLINICAL HISTORY: Fall with left knee injury. FINDINGS: AP and crosstable lateral views of the left knee are obtained. No prior studies are availab le for comparison at the time of dictation. The examination is degraded by inability to properly posi tion the patient. The skeletal structures are well mineralized. No fracture is seen. The joint spaces are grossly maintained. There is no joint effusion. Prepatellar soft tissue swelling is observed. IMPRESSION: Prepatellar soft tissue swelling with no acute bony abnormality identified. Electronically signed by: Manuel Dinh M.D. 01/21/2023 9:34 PM
[2023-01-21] MEDS ORDERED: MoRPHine SULFATE 4 MG/ML 1 ML CARP\\VIAL IV STA (21:46)
--- NOTE | 2023-01-21 23:39 | History & Physical Report ---
Date of Service January 21, 2023 Assessment & Plan (1) Rupture, tendon, patellar: Plan: 57-year-old man with history of polycystic kidney disease (s/p renal transplant), hypertension, and hyperlipidemia who presents for an acute knee injury, presumed bilateral patellar tendon rupture. Now awaiting surgical evaluation/intervention. Bilateral patellar tendon rupture -Unknown etiology, though bilateral rupture suggests underlying tendinos is/tendinopathy incidental trauma still a possibility. -Patient denies being on any antibiotics. Denies chronic steroid use. Patient is not diabetic. -Consulted orthopedic surgery: Recommended evaluation in the a.m. for possible surgery. * Admitted to MedSurg unit * Placed both knees and knee immobilizer brace. * NPO-hold all p.o. meds until after orthopedic surgical evaluation/patella tendon repair. * IV Tylenol 1000 mg q8h scheduled * IV morphine 2mg q3h prn for uncontrolled pain Anxiety/depression * Home bupropion 150 mg, Lexapro 20 mg Hyperlipidemia * Home rosuvastatin 10 mg Renal transplant recipient * Home mycophenolate 750 mg twice daily, tacrolimus 1 mg twice daily Gout * Home allopurinol 100 mg daily Hypothyroidism * Home levothyroxine 75 mcg daily Code: Full code Dispo: Med-Surg FEN/GI: NPO DVT Prophylaxis: Heparin 5000 units SQ Consults: Orthopedic surgery (2) Kidney transplant status, living related donor: (3) Hypertension: (4) Hypercholesteremia: (5) Gout: History of Present Illness Primary Care Provider: Bereket Portillo is a 57-year-old man with past medical history significant for adult polycystic kidney disease (s/p renal transplant surgery), hypothyroidism, gout, hypertension and osteoarthritis, who presented to the emergency room today after sustaining an injury to both of his knees. Patient was descending the stairs at home when he heard a loud pop in his left knee . He then immediately tried to immediately compensate with his other knee, when he heard a pop in that knee and fell backwards onto the stairs. He did not sustain any head injuries nor did he lose consciousness. In the emergency room, labs were notable only for a creatinine of 1.74, which is around his baseline. Bilateral XR knee showed prepatellar soft tissue swelling without acute bony abnormality. He received a dose of IV morphine 4 mg. Orthopedic surgery was consultedthey recommended patient be admitted for evaluation for possible surgery of patellar tendon rupture. On admission, he reports an improvement in his knee pain. He denies shortness of breath, chest pain, dizziness, headache, nausea, or abdominal pain. Allergies Allergy/AdvReac Type Severity Reaction Status Date / Time No Known Allergies Allergy Verified 01/22/23 00:00 Home Medications Medication Instructions Recorded Confirmed Type cholecalciferol (vitamin D3) 50 2,000 unit PO QAM 10/11/18 01/21/23 History mcg (2,000 unit) tablet (Vitamin D3) levothyroxine 75 mcg tablet 75 mcg PO .Q AFTERNOON 10/11/18 01/21/23 History magnesium oxide 400 mg (241.3 mg 400 mg PO DAILY 04/20/19 01/21/23 History magnesium) tablet L-Methylfolate 1 dose PO UD 10/22/19 01/21/23 History bupropion HCl 150 mg tablet,12 hr 150 mg PO QAM 06/20/20 01/21/23 History sustained-release methylphenidate HCl 20 mg tablet 20 mg PO TID 06/20/20 01/21/23 History coenzyme Q10 100 mg capsule 100 mg PO DAILY 01/08/21 01/21/23 History rosuvastatin 10 mg tablet 10 mg PO DAILY #180 tabs 09/07/22 01/21/23 Rx tacrolimus 1 mg capsule, 1 mg PO BID #180 caps 09/07/22 01/21/23 Rx immediate-release mycophenolate mofetil 250 mg 750 mg PO BID #30 caps 09/14/22 01/21/23 Rx capsule escitalopram oxalate 10 mg tablet 20 mg PO QAM 11/17/22 01/21/23 History lisinopril 10 mg tablet 10 mg PO BID #180 tabs 11/22/22 01/21/23 Rx allopurinol 100 mg tablet 100 mg PO QAM 01/21/23 01/21/23 History bupropion HCl 300 mg 24 hr tablet, 300 mg PO QAM 01/21/23 01/21/23 History extended release Past Med/Surg History Medical History Anxiety Gout History of gastroesophageal reflux (GERD) History of hypertension History of migraine Hypothyroidism Iron deficiency anemia Mandibular dysfunction "CHRONIC TIGHTENING" - recently referred to physical therapy Osteoarthritis Polycystic kidney disease, adult type (10/19/12) follows w/ Dr. Oshea; renal transplant 12/2018 Sleep apnea NO DEVICE Spontaneous pneumothorax H/O 2006 Surgical History History of arthroscopic knee surgery History of cholecystectomy History of mandibular surgery History of nephrectomy History of renal transplant 12/2018 [facility] History of surgery Left forearm AV fistula creation 12/14/2016 [facility] History of thoracotomy BL Family History Other No pertinent family history in first degree relatives Social History Smoking Status: Never smoker Second Hand Exposure: No; Do You Dip or Chew Tobacco: No; Tobacco Cessation Education Requested by Patient: No Hx Alcohol Use: Yes Alcohol type: beer and hard liquor Hx Substance Use: No Preferred Language: Norwegian Communication Ability: Effective Visual Impairment: No Limitations [employer] Driver Required: No Beliefs That Will Affect Care: None Current Living Situation: Spouse Feels Safe at Home: Yes Safety Concerns: Feels Safe At This Time Assistive Devices: None Review of Systems Review of Systems: All systems reviewed & are unremarkable except as noted in HPI & below Physical Exam Physical Exam: General: Well-appearing, alert, interactive, and in no acute distress. Neck: Supple. No lymphadenopathy. Normal ROM. CV: Regular rate and rhythm. Normal S1 and S2. No murmurs gallops or rubs. Respiratory: Normal respiratory effort. Lungs clear to auscultation bilaterally. No crackles, rhonchi, or wheezes. Abdomen: Soft, nondistended abdomen. No bruits heard on auscultation. No tenderness to deep palpation. No guarding or rebound. Extremities: Capillary refill <2 sec. 2+ dp equal bilaterally. No pedal edema. Knee: Mild swelling (L >>R) noted on visual exam. No surrounding hemarthrosis or ecchymosis bilaterally. Moderately tender to palpation bilaterally at suprapatellar aspect of knee. Palpable defect of infrapatellar aspect on the left knee. Unable to perform straight leg test bilaterally. Unable to extend leg at the knee bilaterally. Neuro: Alert and oriented x3. Skin: Clean, dry, and intact. No rashes, bruises, or erythema. Results & Data Results & Data Vital Signs (Past 12 Hours) Vital Signs Temp Pulse Resp BP Pulse Ox O2 Del Method 01/21/23 20:45 86 18 94 01/21/23 20:44 88 17 96 01/21/23 20:50 85 01/21/23 20:42 37.2 C 87 18 124/70 95 Room Air Laboratory Results Laboratory Results WBC 5.45 K/ul (4.8-10.8) 01/21/23 20:46 RBC 4.10 M/uL (4.70-6.10) L 01/21/23 20:46 Hgb 12.9 g/dl (14.0-18.0) L 01/21/23 20:46 Hct 36.6 % (42.0-52.0) L 01/21/23 20:46 MCV 89.3 fL (80.0-100.0) 01/21/23 20:46 MCH 31.5 pg (25.0-34.0) 01/21/23 20:46 MCHC 35.2 g/dL (32.0-36.0) 01/21/23 20:46 RDW Std Deviation 37.7 fL (36.4-46.3) 01/21/23 20:46 RDW Coeff of Yue 11.8 % (11.5-14.5) 01/21/23 20:46 Plt Count 234 K/uL (130-400) 01/21/23 20:46 MPV 9.8 fL (9.4-12.4) 01/21/23 20:46 Immature Gran % (Auto) 0.4 % 01/21/23 20:46 Neut % (Auto) 69.3 % 01/21/23 20:46 Lymph % (Auto) 19.4 % 01/21/23 20:46 [place] % (Auto) 8.6 % 01/21/23 20:46 Eos % (Auto) 1.7 % 01/21/23 20:46 Baso % (Auto) 0.6 % 01/21/23 20:46 Neut # (Auto) 3.78 K/uL (1.40-6.50) 01/21/23 20:46 Lymph # (Auto) 1.06 K/uL (1.2-3.4) L 01/21/23 20:46 [place] # (Auto) 0.47 K/uL (0.11-0.59) 01/21/23 20:46 Eos # (Auto) 0.09 K/uL (0-0.50) 01/21/23 20:46 Baso # (Auto) 0.03 K/uL (0-0.2) 01/21/23 20:46 Immature Gran # (Auto) 0.02 K/uL (0.01-0.20) 01/21/23 20:46 Sodium 139 mmol/L (136-145) 01/21/23 20:46 Potassium 4.0 mmol/L (3.5-5.1) 01/21/23 20:46 Chloride 107 mmol/L (98-107) 01/21/23 20:46 Carbon Dioxide 20 mmol/L (21-32) L 01/21/23 20:46 Anion Gap 12 (3-11) H 01/21/23 20:46 BUN 23 mg/dl (6-23) 01/21/23 20:46 Creatinine 1.74 mg/dl (0.6-1.4) H 01/21/23 20:46 Est Cr Clr Drug Dosing 54.1 ml/min 01/21/23 20:46 Est GFR ( Amer) 49.0 ml/min 01/21/23 20:46 Est GFR (Non-Af Amer) 42.3 ml/min 01/21/23 20:46 BUN/Creatinine Ratio 13.2 (10-20) 01/21/23 20:46 Glucose 96 mg/dl (70-99(Fasting)) 01/21/23 20:46 Calcium 9.4 mg/dl (8.6-10.3) 01/21/23 20:46 SARS-CoV-2, RNA, NAAT NEGATIVE (NEGATIVE) 01/21/23 20:46 Impressions Knee X-Ray 01/21/23 20:35 LEFT KNEE 2 VIEWS CLINICAL HISTORY: Fall with left knee injury. FINDINGS: AP and crosstable lateral views of the left knee are obtained. No prior studies are available for comparison at the time of dictation. The examination is degraded by inability to properly position the patient. The skeletal structures are well mineralized. No fracture is seen. The joint spaces are grossly maintained. There is no joint effusion. Prepatellar soft tissue swelling is observed. IMPRESSION: Prepatellar soft tissue swelling with no acute bony abnormality identified. Electronically signed by: Manuel Dinh M.D. 01/21/2023 9:34 PM Supervising Physician Co-Signing Physician Notes Patient seen and examined, chart reviewed, case discussed with Dr. Patiño and I agree with the assessment and plan as above. In brief, patient is a 57yo male with history of PCKD s/p renal transplant, HTN and HLP presenting with bilateral patellar tendon rupture. No recent quinolone use, no chronic steroids. Patient is on anti-rejection agents mycophenolate and Tacrolimus. On exam he is resting comfortably, knee immobilizers in place +S1/S2, regular Lungs CTA Abd soft, NT/ND Ext NV intact Labs and images reviewed Assessment/Plan -Knee immobilizers -Ortho consult -Continue antirejection agents - monitor renal function -Remainder as above Resident Activity Tracking Resident Involvement: Resident Care Provided Care Provided: Adult Hospital Medicine
[2023-01-22] MEDS ORDERED: MoRPHine SULFATE 2 MG/ML CARP IV PRN (02:08)
[2023-01-22] MEDS: ACETAMINOPHEN 1,000 MG/100 ML VIAL IV SCH ×2 (02:40→16:24)
--- NOTE | 2023-01-22 04:02 | Billing Data ---
Date of Service January 21, 2023 Coding Level of Care Code 33869 INT INP/OBS CARE
[2023-01-22] MEDS: LEVOTHYROXINE SODIUM 75 MCG TABLET PO SCH (06:07)
[2023-01-22 06:41] LABS: Basophils # (auto) 0.03 K/uL (0-0.2); Basophils % (auto) 0.5 %; Eosinophils # (auto) 0.04 K/uL (0-0.50); Eosinophils % (auto) 0.7 %; Hematocrit (blood only) 36.2 % (42.0-52.0); Hemoglobin 12.5 g/dl (14.0-18.0); Immature Granulocytes # (auto) 0.02 K/uL (0.01-0.20); Immature Granulocytes % (auto) 0.4 %; Lymphocytes # (auto) 1.06 K/uL (1.2-3.4); Lymphocytes % (auto) 18.7 %; Mean Corpuscular Hgb Conc 34.5 g/dL (32.0-36.0); Mean Corpuscular Volume 92.6 fL (80.0-100.0); Monocytes # (auto) 0.62 K/uL (0.11-0.59); Monocytes % (auto) 10.9 %; Neutrophils # (auto) 3.91 K/uL (1.40-6.50); Neutrophils % (auto) 68.8 %; Platelet Count 190 K/uL (130-400); RDW Standard Deviation 40.3 fL (36.4-46.3); Red Blood Count 3.91 M/uL (4.70-6.10); White Blood Count 5.68 K/ul (4.8-10.8)
[2023-01-22 07:10] LABS: BUN Creatinine Ratio 14.9 (10-20); Calcium 9.3 mg/dl (8.6-10.3); Creatinine Clr Calc Pharmacy 51.3 ml/min; Est GFR (African American) 46.7 ml/min; Est GFR (Non-African American) 40.3 ml/min; Magnesium 1.9 mg/dl (1.7-2.4); Phosphorus 4.7 mg/dl (2.5-4.9); Potassium 4.3 mmol/L (3.5-5.1)
--- NOTE | 2023-01-22 08:15 | Hospitalist Progress Note ---
Date of Service January 22, 2023 Assessment & Plan (1) Rupture, tendon, patellar: Plan: 57-year-old man with history of polycystic kidney disease (s/p renal transplant), hypertension, and hyperlipidemia who presents for an acute knee injury, presumed bilateral patellar tendon rupture. Now awaiting surgical evaluation/intervention. Bilateral patellar tendon rupture Unknown etiology, though bilateral rupture suggests underlying tendinosis/t endinopathy hx patella tendinitis and reported [place] [employer] and landing on left and then recovery step after left leg gave out w/ same injury Patient denies being on any recent antibiotics. Denies chronic steroid use. Patient is not diabetic. Consulted orthopedic surgery Immobilizer in place this morning NPO for surgery today Added IVF NSS @ 100cc/hr for BUN 27/Cr 1.81 & pt reports less urine output since admit and hasn't taking anything orally Pain control/antiemetics prn Nephrology consulted -- given anti-rejection meds this morning and continue tacrolimus Place lisinopril on hold as well given low BPs -- monitor w/ spinal anesthesia for hypotension Will need PT/OT consults following, likely inpatient rehab initially Heparin SQ ordered for DVT proph, but on hold for OR Monitor labs in AM Renal transplant recipient Follows locally with Dr Gutiérrez, [facility] for transplant history (donor - sister). 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 mycophenolate 750 mg twice daily, tacrolimus 1 mg twice daily Nephrology on consult -- appreciate assistance HTN Lisnopril 10mg BID --> PLACED ON HOLD, would hold given borderline hypotension BP 93/57 this morning but no lightheaded/dizziness. IVF ordered as above Anxiety/depression Bupropion 150 mg, Lexapro 20 mg Hyperlipidemia Rosuvastatin 10 mg Gout Home allopurinol 100 mg daily Hypothyroidism Home levothyroxine 75 mcg daily Code: Full code Dispo: Med-Surg FEN/GI: NPO DVT Prophylaxis: Heparin 5000 units SQ post op when ok w/ surgery (2) Kidney transplant status, living related donor: (3) Hypertension: (4) Hypercholesteremia: (5) Gout: Plan for surgery when OR available start/continue IVF, hold lisinopril/BP meds monitor labs in AM Admission and Anticipated Discharge Date Admission Date: January 21, 2023 Supervising Physician Co-Signing Physician Notes The patient was not seen by me. The chart was reviewed. Case discussed with DANILO Dickinson. Agree with assessment and plan Subjective Eval this morning States he fell coming [place] steps [place] [employer] and felt pop coming down on left and then came down on the right in similar fashion and immediately knew what happened. Sensation intact. Pain controlled with ordered medications, feeling improved since immobilizers in place. Will need some inpatient rehab, and he is aware of lengthy recovery process. Got his tacrolimus this morning and mycophenolate. Started IVF - he does endorse decreased urine output over last 24 hours as he h as been here but hasn't had anything to eat/drink. Discussed holding lisinopril and continuing IVF and monitoring. Typically active richard but not as much over past year due to work/busy. No fever, chills, chest pain, shortness of breath, abdominal pain or nausea at present. Physical Exam Physical Exam: General: WN/WD male laying flat in bed initially upon entry, NAD HEENT: head atraumatic, normocephalic, mm slightly dry/cracked lips, Resp: CTA, no w/c, on room air CV: RRR, no significant m/r/g, no pitting edema to feet, pulses palpable, cap refill wnl. L arm AV fistula GI: +BS, slight distension, nontender : no keller MSK/Neuro: b/l knees in immobilizer, pulses palpable, NVI Psych: AOx3, pleasant and cooperative Results & Data Results & Data Vital Signs (Past 12 Hours) Vital Signs Temp Pulse Pulse Resp BP BP Pulse Ox 01/22/23 07:27 36.5 C 74 16 93/57 L 97 01/22/23 01:15 36.4 C L 83 16 122/75 99 01/22/23 02:16 87 16 107/67 98 01/22/23 00:46 91 H 01/21/23 20:45 86 18 94 01/21/23 20:44 88 17 96 01/21/23 20:50 85 01/21/23 20:42 37.2 C 87 18 124/70 95 O2 Del Method 01/22/23 07:27 Room Air 01/22/23 01:15 Room Air 01/22/23 02:16 Room Air 01/22/23 00:46 01/21/23 20:45 01/21/23 20:44 01/21/23 20:50 01/21/23 20:42 Room Air Laboratory Results 01/22/23 01/22/23 01/21/23 Range/Units 05:40 05:40 20:46 WBC 5.68 (4.8-10.8) K/ul RBC 3.91 L (4.70-6.10) M/uL Hgb 12.5 L (14.0-18.0) g/dl Hct 36.2 L (42.0-52.0) % MCV 92.6 (80.0-100.0) fL MCH 32.0 (25.0-34.0) pg MCHC 34.5 (32.0-36.0) g/dL RDW Std Deviation 40.3 (36.4-46.3) fL RDW Coeff of Yue 12.0 (11.5-14.5) % Plt Count 190 (130-400) K/uL MPV 10.0 (9.4-12.4) fL Immature Gran % (Auto) 0.4 % Neut % (Auto) 68.8 % Lymph % (Auto) 18.7 % [place] % (Auto) 10.9 % Eos % (Auto) 0.7 % Baso % (Auto) 0.5 % Neut # (Auto) 3.91 (1.40-6.50) K/uL Lymph # (Auto) 1.06 L (1.2-3.4) K/uL [place] # (Auto) 0.62 H (0.11-0.59) K/uL Eos # (Auto) 0.04 (0-0.50) K/uL Baso # (Auto) 0.03 (0-0.2) K/uL Immature Gran # (Auto) 0.02 (0.01-0.20) K/uL Sodium 140 (136-145) mmol/L Potassium 4.3 (3.5-5.1) mmol/L Chloride 106 (98-107) mmol/L Carbon Dioxide 27 (21-32) mmol/L Anion Gap 7 (3-11) BUN 27 H (6-23) mg/dl Creatinine 1.81 H (0.6-1.4) mg/dl Est Cr Clr Drug Dosing 51.3 ml/min Est GFR ( Amer) 46.7 ml/min Est GFR (Non-Af Amer) 40.3 ml/min BUN/Creatinine Ratio 14.9 (10-20) Glucose 104 H (70-99(Fasting)) mg/dl Calcium 9.3 (8.6-10.3) mg/dl Phosphorus 4.7 (2.5-4.9) mg/dl Magnesium 1.9 (1.7-2.4) mg/dl SARS-CoV-2, RNA, NAAT NEGATIVE (NEGATIVE) 01/21/23 01/21/23 Range/Units 20:46 20:46 WBC 5.45 (4.8-10.8) K/ul RBC 4.10 L (4.70-6.10) M/uL Hgb 12.9 L (14.0-18.0) g/dl Hct 36.6 L (42.0-52.0) % MCV 89.3 (80.0-100.0) fL MCH 31.5 (25.0-34.0) pg MCHC 35.2 (32.0-36.0) g/dL RDW Std Deviation 37.7 (36.4-46.3) fL RDW Coeff of Yue 11.8 (11.5-14.5) % Plt Count 234 (130-400) K/uL MPV 9.8 (9.4-12.4) fL Immature Gran % (Auto) 0.4 % Neut % (Auto) 69.3 % Lymph % (Auto) 19.4 % [place] % (Auto) 8.6 % Eos % (Auto) 1.7 % Baso % (Auto) 0.6 % Neut # (Auto) 3.78 (1.40-6.50) K/uL Lymph # (Auto) 1.06 L (1.2-3.4) K/uL [place] # (Auto) 0.47 (0.11-0.59) K/uL Eos # (Auto) 0.09 (0-0.50) K/uL Baso # (Auto) 0.03 (0-0.2) K/uL Immature Gran # (Auto) 0.02 (0.01-0.20) K/uL Sodium 139 (136-145) mmol/L Potassium 4.0 (3.5-5.1) mmol/L Chloride 107 (98-107) mmol/L Carbon Dioxide 20 L (21-32) mmol/L Anion Gap 12 H (3-11) BUN 23 (6-23) mg/dl Creatinine 1.74 H (0.6-1.4) mg/dl Est Cr Clr Drug Dosing 54.1 ml/min Est GFR ( Amer) 49.0 ml/min Est GFR (Non-Af Amer) 42.3 ml/min BUN/Creatinine Ratio 13.2 (10-20) Glucose 96 (70-99(Fasting)) mg/dl Calcium 9.4 (8.6-10.3) mg/dl Phosphorus (2.5-4.9) mg/dl Magnesium (1.7-2.4) mg/dl SARS-CoV-2, RNA, NAAT (NEGATIVE) Diagnostic Findings Knee X-Ray 01/21/23 20:35 LEFT KNEE 2 VIEWS CLINICAL HISTORY: Fall with left knee injury. FINDINGS: AP and crosstable lateral views of the left knee are obtained. No prior studies are available for comparison at the time of dictation. The examination is degraded by inability to properly position the patient. The skeletal structures are well mineralized. No fracture is seen. The joint spaces are grossly maintained. There is no joint effusion. Prepatellar soft tissue swelling is observed. IMPRESSION: Prepatellar soft tissue swelling with no acute bony abnormality identified. Electronically signed by: Manuel Dinh M.D. 01/21/2023 9:34 PM Knee X-Ray 01/21/23 20:35 RIGHT KNEE 2 VIEWS CLINICAL HISTORY: Fall. Right knee injury. FINDINGS: AP and crosstable lateral views of the right knee are compared to study dated 04/20/2019. The examination is degraded by inability to properly position the patient. The skeletal structures are well mineralized. No fracture is seen. The joint spaces are grossly maintained. There is no joint effusion. Prepatellar soft tissue swelling is observed. IMPRESSION: Prepatellar soft tissue swelling with no acute bony abnormality identified.. Electronically signed by: Manuel Dinh M.D. 01/21/2023 9:33 PM PG Care Time/CCT Total # of Minutes Spent Total Time Spent with Patient: Total time spent is greater than 50% in coordination of care (as documented) at patient's floor/unit and/or counseling patient: Coding Level of Care Code 97065 SUB INP/OBS CARE 50MIN Diagnoses Rupture, tendon, patellar S86.819A Kidney transplant status, living related donor Z94.0 Hypertension I10 Hypercholesteremia E78.00 Gout M10.9
[2023-01-22] MEDS: METHYLPHENIDATE HCL 10 MG TABLET PO SCH ×3 (08:35→17:20)
[2023-01-22] MEDS: buPROPion XL 300 MG TABCR PO SCH (08:36)
[2023-01-22] MEDS: allopurinoL 100 MG TAB PO SCH (08:36)
[2023-01-22] MEDS: CHOLECALCIFEROL 1,000 UNITS 25 MCG TAB PO SCH (08:37)
[2023-01-22] MEDS: buPROPion XL 150 MG TABCR PO SCH (08:37)
[2023-01-22] MEDS: ESCITALOPRAM OXALATE 20 MG TAB PO SCH (08:37)
[2023-01-22] MEDS: MYCOPHENOLATE MOFETIL 250 MG CAP PO SCH ×2 (08:38→21:35)
[2023-01-22] MEDS: HEPARIN SOD 5,000 UNIT/0.5 ML VIAL SQ SCH ×2 (08:38→21:35)
[2023-01-22] MEDS: TACROLIMUS 1 MG CAP PO SCH ×2 (08:39→21:35)
[2023-01-22] MEDS: MAGNESIUM OXIDE 400 MG TAB PO SCH (08:39)
[2023-01-22] MEDS: ROSUVASTATIN CALCIUM 10 MG TAB PO SCH (08:39)
[2023-01-22] MEDS: SODIUM CHLORIDE 0.9% 1000ML 1,000 ML IV SCH ×3 (08:40→22:45)
[2023-01-22] MEDS ORDERED: NON-FORMULARY MEDICATION (Coenzyme Q10 100 mg capsule) PO SCH (09:00)
--- NOTE | 2023-01-22 09:10 | Orthopedic Consultation ---
Date of Service January 22, 2023 Assessment & Plan (1) Quadriceps tendon rupture: 57-year-old male renal transplant patient is otherwise active admitted with bilateral quadricep tendon rupture. Conical Mixer been consulted. They made recommendations to proceed with surgery today. Immunosuppressive should sydni nue on schedule. Renal precautions should be respected. - Plan for surgery as soon as today with anesthesia and nephrology consulted - NPO, bedrest - bilateral knee immobilizers for comfort and any transfers - Hold anticoagulation but will need 6 weeks of NON-aspirin VTE ppx I reviewed the diagnoses of bilateral quadricep tendon rupture, the prognosis and recommended treatment of bilateral surgical repair as soon as medically optimal. We discussed likely need for acute rehab. Expect WBAT locked in extension for first 6 weeks. Will need graduated ROM therapy with goal of 0-90 by 6 weeks. Risks and benefits of surgery were reviewed. No viable non- surgical alternative with expectation of return of knee extensor function. Risks include, but are not limited to, infection, nerve/vessel injury, bleeding, knee contracture, need for extensive therapy, failure of the repair to heal, need for repeat or revision surgery, implant complications, failure to regain previous level of function, blood clots, pain syndromes, and complications related to anesthesia. He asked appropriate questions, demonstrated a good understanding, and agreeable to proceed with BILATERAL QUADRICEP TENDON REPAIR as soon as reasonably possible. History of Present Illness Reason for Consultation: Bilateral extensor mechanism injury Requesting Physician: . Attending Physician: Rivas Hoyt MD 57-year-old male local [facility] with a history of polycystic kidney disease status post renal transplant in 2019 was taken to the ER by EMS after a fall. [place] and felt his knee give way with a significant pop, and he tried to recover with another step on the right where that knee gave way as well. He was diagnosed with bilateral patella tendon injuries due to history of patella tendinitis. No prior surgeries on either knee. He does admit to multiple joint issues because of his renal disease. He was treated years ago for bilateral patella tendinitis with a full course of physical therapy. He did have resolution of that pain. He has had no antecedent pain before these injuries last night. He is up-to-date with his immunosuppressive's and has been seen by nephrology recently. Allergies Allergy/AdvReac Type Severity Reaction Status Date / Time No Known Allergies Allergy Verified 01/22/23 00:00 Home Medications Medication Instructions Recorded Confirmed Type cholecalciferol (vitamin D3) 50 2,000 unit PO QAM 10/11/18 01/21/23 History mcg (2,000 unit) tablet (Vitamin D3) levothyroxine 75 mcg tablet 75 mcg PO .Q AFTERNOON 10/11/18 01/21/23 History magnesium oxide 400 mg (241.3 mg 400 mg PO DAILY 04/20/19 01/21/23 History magnesium) tablet L-Methylfolate 1 dose PO UD 10/22/19 01/21/23 History bupropion HCl 150 mg tablet,12 hr 150 mg PO QAM 06/20/20 01/21/23 History sustained-release methylphenidate HCl 20 mg tablet 20 mg PO TID 06/20/20 01/21/23 History coenzyme Q10 100 mg capsule 100 mg PO DAILY 01/08/21 01/21/23 History rosuvastatin 10 mg tablet 10 mg PO DAILY #180 tabs 09/07/22 01/21/23 Rx tacrolimus 1 mg capsule, 1 mg PO BID #180 caps 09/07/22 01/21/23 Rx immediate-release mycophenolate mofetil 250 mg 750 mg PO BID #30 caps 09/14/22 01/21/23 Rx capsule escitalopram oxalate 10 mg tablet 20 mg PO QAM 11/17/22 01/21/23 History lisinopril 10 mg tablet 10 mg PO BID #180 tabs 11/22/22 01/21/23 Rx allopurinol 100 mg tablet 100 mg PO QAM 01/21/23 01/21/23 History bupropion HCl 300 mg 24 hr tablet, 300 mg PO QAM 01/21/23 01/21/23 History extended release Past Med/Surg History Medical History (Updated 01/22/23 @ 09:08 by James Calhoun MD) Anxiety Gout History of gastroesophageal reflux (GERD) History of hypertension History of migraine Hypothyroidism Iron deficiency anemia Mandibular dysfunction "CHRONIC TIGHTENING" - recently referred to physical therapy Osteoarthritis Polycystic kidney disease, adult type (10/19/12) follows w/ Dr. Oshea; renal transplant 12/2018 Sleep apnea NO DEVICE Spontaneous pneumothorax H/O 2006 Surgical History History of arthroscopic knee surgery History of cholecystectomy History of mandibular surgery History of nephrectomy History of renal transplant 12/2018 [facility] History of surgery Left forearm AV fistula creation 12/14/2016 [facility] History of thoracotomy BL Family History Other No pertinent family history in first degree relatives Social History Smoking Status: Never smoker Second Hand Exposure: No; Do You Dip or Chew Tobacco: No; Tobacco Cessation Education Requested by Patient: No Hx Alcohol Use: Yes Alcohol type: beer and hard liquor Hx Substance Use: No Preferred Language: French Communication Ability: Effective Visual Impairment: No Limitations Faculty Member Required: No Beliefs That Will Affect Care: None Current Living Situation: Spouse Feels Safe at Home: Yes Safety Concerns: Feels Safe At This Time Assistive Devices: None Review of Systems All systems reviewed & are unremarkable except as noted in HPI & below. Physical Exam RLE: Immobilizer removed. Able achieve full extension passively. He cannot activate a straight leg raise and has an incompetent extensor mechanism. On palpation there is a clear defect at the quadricep tendon insertion. The patella tendon is palpable and tensions with superior movement of the patella. No overlying skin issues. Neurovascular intact. LLE: Exam is exactly the same. Constitutional WD/WN, vitals as above Respiratory normal respiratory effort; no respiratory distress Cardiovascular Extremities: normal capillary refill; no edema Chest (Breasts) Chest: normal inspection of chest Skin no rashes, warm and dry Psychiatric A+Ox3, euthymic affect Results & Data Results & Data Laboratory Results Laboratory Tests 01/22/23 01/22/23 05:40 05:40 Hgb 12.5 L Hct 36.2 L Creatinine 1.81 H Diagnostic Findings Radiographs reviewed: His bilateral knee x-rays were taken in hyperflexion. There is no obvious avulsions or fractures about the extensor mechanism. PG Care Time/CCT Total # of Minutes Spent Total Time Spent with Patient: Total time spent is greater than 50% in coordination of care (as documented) at patient's floor/unit and/or counseling patient: Coding Level of Care Code 95165 IN/OBS CONSULT LVL 4,60M (57 - DECISION FOR SURGERY) Diagnoses Quadriceps tendon rupture S76.119A
--- NOTE | 2023-01-22 11:06 | Anesthesiology Consultation ---
Date of Service January 22, 2023 Assessment & Plan Chart Review Chart Review: Acceptable Risk for Surgery and Patient NOT seen in Pre Admission Testing Consults Requested none ASA ASA3 Proposed Anesthesia Anesthesia Type: MAC Spinal History Surgery Operation Date: 01/22/23 10:00 Proposed Procedures p Bilateral Patellar Tendon Repair - James Calhoun MD Height/Weight Height: 5 ft 11 in Weight: 90.718 kg Allergies Allergy/AdvReac Type Severity Reaction Status Date / Time No Known Allergies Allergy Verified 01/22/23 00:00 Medications Home Medications Medication Instructions Recorded Confirmed Last Taken cholecalciferol (vitamin D3) 50 2,000 unit PO QAM 10/11/18 01/21/23 01/21/23 mcg (2,000 unit) tablet (Vitamin D3) levothyroxine 75 mcg tablet 75 mcg PO .Q AFTERNOON 10/11/18 01/21/23 01/21/23 magnesium oxide 400 mg (241.3 mg 400 mg PO DAILY 04/20/19 01/21/23 01/21/23 magnesium) tablet L-Methylfolate 1 dose PO UD 10/22/19 01/21/23 01/21/23 bupropion HCl 150 mg tablet,12 hr 150 mg PO QAM 06/20/20 01/21/23 01/21/23 sustained-release methylphenidate HCl 20 mg tablet 20 mg PO TID 06/20/20 01/21/23 01/21/23 coenzyme Q10 100 mg capsule 100 mg PO DAILY 01/08/21 01/21/23 01/21/23 rosuvastatin 10 mg tablet 10 mg PO DAILY #180 tabs 09/07/22 01/21/23 01/21/23 tacrolimus 1 mg capsule, 1 mg PO BID #180 caps 09/07/22 01/21/23 01/21/23 immediate-release mycophenolate mofetil 250 mg 750 mg PO BID #30 caps 09/14/22 01/21/23 01/21/23 capsule escitalopram oxalate 10 mg tablet 20 mg PO QAM 11/17/22 01/21/23 01/21/23 lisinopril 10 mg tablet 10 mg PO BID #180 tabs 11/22/22 01/21/23 01/21/23 allopurinol 100 mg tablet 100 mg PO QAM 01/21/23 01/21/23 01/21/23 bupropion HCl 300 mg 24 hr tablet, 300 mg PO QAM 01/21/23 01/21/23 01/21/23 extended release Active Medications Generic Name Dose Route Start Last Admin Trade Name Kim PRN Reason Stop Dose Admin Allopurinol 100 mg 01/22/23 09:00 01/22/23 08:36 Allopurinol 100 Mg Tab PO 02/21/23 08:59 100 mg QAM RAQUEL Administration Bupropion HCl 150 mg 01/22/23 09:00 01/22/23 08:37 Bupropion Xl 150 Mg Tabcr PO 02/21/23 08:59 150 mg QAM RAQUEL Administration Bupropion HCl 300 mg 01/22/23 09:00 01/22/23 08:36 Bupropion Xl 300 Mg Tabcr PO 02/21/23 08:59 Not Given QAM RAQUEL Escitalopram Oxalate 20 mg 01/22/23 09:00 01/22/23 08:37 Escitalopram Oxalate 20 Mg Tab PO 02/21/23 08:59 20 mg QAM RAQUEL Administration Heparin Sodium (Porcine) 5,000 units 01/22/23 09:00 01/22/23 08:38 Heparin Sod 5,000 Unit/0.5 Ml Vial SQ 02/21/23 08:59 Not Given Q12 RAQUEL Acetaminophen 1,000 mg in 100 mls @ 400 mls/hr 01/22/23 02:30 01/22/23 03:20 Ofirmev IV 01/25/23 02:29 Infused Q8H RAQUEL Infusion Sodium Chloride 1,000 mls @ 100 mls/hr 01/22/23 08:15 01/22/23 08:40 Nss 1000ml IV 02/21/23 08:14 100 mls/hr .Q10H RAQUEL Administration Levothyroxine Sodium 75 mcg 01/22/23 06:30 01/22/23 06:07 Levothyroxine Sodium 75 Mcg Tablet PO 02/21/23 06:29 Not Given DAILYBB RAQUEL Magnesium Oxide 400 mg 01/22/23 09:00 01/22/23 08:39 Magnesium Oxide 400 Mg Tab PO 02/21/23 08:59 Not Given DAILY RAQUEL Methylphenidate HCl 20 mg 01/22/23 08:00 01/22/23 08:35 Methylphenidate Hcl 10 Mg Tablet PO 02/05/23 07:59 Not Given TIDM RAQUEL Miscellaneous 1 each 01/22/23 08:00 01/22/23 08:35 Order Awaiting Action: L-Methylfolate Medical Food Supplement N/A 02/21/23 07:59 Not Given QS RAQUEL Mycophenolate Mofetil 750 mg 01/22/23 09:00 01/22/23 08:38 Mycophenolate Mofetil 250 Mg Cap PO 02/21/23 08:59 750 mg BID RAQUEL Administration Rosuvastatin Calcium 10 mg 01/22/23 09:00 01/22/23 08:39 Rosuvastatin Calcium 10 Mg Tab PO 02/21/23 08:59 Not Given DAILY RAQUEL Tacrolimus 1 mg 01/22/23 09:00 01/22/23 08:39 Tacrolimus 1 Mg Cap PO 02/21/23 08:59 1 mg BID RAQUEL Administration Vitamin D 2,000 units 01/22/23 09:00 01/22/23 08:37 Cholecalciferol 1,000 Units 25 Mcg Tab PO 02/21/23 08:59 Not Given QAM RAQUEL NPO Date Last Intake of Fluids: 01/22/23 Time Last Intake of Fluids: 09:30 Last Intake of Fluids Comment: sips with AM meds Date Last Intake of Solids: 01/21/23 Time Last Intake of Solids: 18:45 Past Medical History Medical History Anxiety Gout History of gastroesophageal reflux (GERD) History of hypertension History of migraine Hypothyroidism Iron deficiency anemia Mandibular dysfunction "CHRONIC TIGHTENING" - recently referred to physical therapy Osteoarthritis Polycystic kidney disease, adult type (10/19/12) follows w/ Dr. Oshea; renal transplant 12/2018 Sleep apnea NO DEVICE Spontaneous pneumothorax H/O 2006 Exercise / Class Metabolic Activity III < 4 Walking/Shop/Light housework Past Family History Family History Other No pertinent family history in first degree relatives Past Surgical History Surgical History History of arthroscopic knee surgery History of cholecystectomy History of mandibular surgery History of nephrectomy History of renal transplant 12/2018 [facility] History of surgery Left forearm AV fistula creation 12/14/2016 [facility] History of thoracotomy BL Past Anesthesia History No Hx of Anesthesia Complications and No Family Hx of Anesthesia Complications History of PONV No Hx of PONV and No Hx of Motion Sickness Social History Smoking Status: Never smoker Do You Dip or Chew Tobacco: No Hx Alcohol Use: Yes Alcohol type: beer and hard liquor alcohol intake frequency: holidays/special occasions only Hx Substance Use: No substance use type: does not use Physical Exam Vital Signs Last Vital Signs Temp 36.5 C 01/22/23 07:27 Pulse 85 01/22/23 11:02 Resp 18 01/22/23 11:02 BP 118/76 01/22/23 11:02 Pulse Ox 96 01/22/23 11:02 O2 Del Method Room Air 01/22/23 11:02 Testing Laboratory Results 01/22/23 05:40 01/22/23 05:40 Electrocardiogram Date: 01/21/23 Findings: + NSR @ (@ 86) Echocardiogram Date: 08/28/18 EF: 60% LV Function: normal RWMA: + none Valvular Disease: + no significant valvular disease Stress Test Date: 09/28/17 Type: exercise Findings: + WNL and + achieved max HR (93%) Resting EF: 60% Resting LV Function: normal Resting RWMA: + none Valvular Disease: no significant valvular disease
[2023-01-22] MEDS ORDERED: BUPIVACAINE 0.5 % 5 MG/1 ML PF 10ML VIAL ONE (11:37)
[2023-01-22] MEDS ORDERED: BUPIVACAINE/EPINEPHRINE 0.25% 1:200,000 30 ML VIAL ONE (11:37)
[2023-01-22] MEDS ORDERED: fentaNYL citrate PF 100 MCG/2 ML VIAL ONE (11:40)
[2023-01-22] MEDS ORDERED: MIDAZOLAM HCL 1 MG/ML 2ML VIAL ONE ×2 (11:40→12:40)
[2023-01-22] MEDS ORDERED: ceFAZolin 330 MG/ML 1 GM VIAL ONE (12:09)
--- NOTE | 2023-01-22 12:28 | Electrocardiogram Report ---
Test Reason : Blood Pressure : / mmHG Vent. Rate : 086 BPM Atrial Rate : 086 BPM P-R Int : 162 ms QRS Dur : 090 ms QT Int : 358 ms P-R-T Axes : 062 054 035 degrees QTc Int : 428 ms Normal sinus rhythm Normal ECG When compared with ECG of 26-OCT-2019 13:14, No significant change was found Confirmed by Jam Leiva ([id number]) on 01/22/2023 12:27:42 PM Referred By: REFERRED SELF Confirmed By:Jam Leiva
[2023-01-22] MEDS ORDERED: PHENYLEPHRINE HCL 10 MG/ML VIAL ONE (12:52)
[2023-01-22] MEDS ORDERED: ceFAZolin 2000MG 2,000 MG/15 ML SYR IV ONE (13:01)
--- NOTE | 2023-01-22 13:16 | Nephrology Consultation ---
Date of Consultation January 22, 2023 Assessment & Plan (1) Kidney transplant status, living related donor: (2) Hypertension: (3) Quadriceps tendon rupture: Plan Dr. 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 On admission creatinine was 1.8, overall he has been otherwise feeling well, blood pressure relatively low but asymptomatic. Plan to have the surgery this morning. -- continue on IV fluid, continue to hold lisinopril, avoid hypotension through the procedure. -- tacrolimus and mycophenolate home does -- once recover from surgery, if blood pressure stays stable, it would be okay to resume lisinopril -- check cbc, renal function, electrolyte tomorrow -- left arm nephrology precaution ( AVF) will follow Thank you for allowing me to participate in your patient's care. It was a pleasure to see Jun the History of Present Illness Reason for Consultation: Renal transplant status, admitted after a fall and quadriceps tendon rupture. Attending Physician: Rivas Hoyt MD History of Present Illness Dr. 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 Nephrology consult requested to evaluate before planned surgery with history of kidney transplant and being on immunosuppressive. EMR records are reviewed in detail during visit. Jun presented to ER yesterday [place] and felt his knee give way with a significant pop, and he tried to recover with another step on the right where that knee gave way as well. He was diagnosed with bilateral patella tendon injuries and plan for surgery this morning. He reports pain is manageable while his knees are in mobile. 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 Posttransplant allograft function has been decent with creatinine around 1.5-1.7 a, on tacrolimus 1 mg twice a day, mycophenolate 75 mg twice a day. Transplant course posttransplant course has been otherwise on even full with no acute rejection or opportunistic infection. Bilateral grayling nephrectomy was performed at the time of transplant. [facility] nurse rehabilitation services coordinator is Sarahi Baker RN (P: [phone], F: [phone]). Has L forearm AVF created on 12/14/[address] Shay and previously had transposition. AVF has + bruit. Has been on lisinopril 10 mg daily for hypertension which is on hold as blood pressure was running relatively low. On levothyroxine for hypothyroidism. Overall he was asymptomatic this morning and has been otherwise in good health lately until the fall last evening. Allergies Allergy/AdvReac Type Severity Reaction Status Date / Time No Known Allergies Allergy Verified 01/22/23 00:00 Home Medications Medication Instructions Recorded Confirmed Type cholecalciferol (vitamin D3) 50 2,000 unit PO QAM 10/11/18 01/21/23 History mcg (2,000 unit) tablet (Vitamin D3) levothyroxine 75 mcg tablet 75 mcg PO .Q AFTERNOON 10/11/18 01/21/23 History magnesium oxide 400 mg (241.3 mg 400 mg PO DAILY 04/20/19 01/21/23 History magnesium) tablet L-Methylfolate 1 dose PO UD 10/22/19 01/21/23 History bupropion HCl 150 mg tablet,12 hr 150 mg PO QAM 06/20/20 01/21/23 History sustained-release methylphenidate HCl 20 mg tablet 20 mg PO TID 06/20/20 01/21/23 History coenzyme Q10 100 mg capsule 100 mg PO DAILY 01/08/21 01/21/23 History rosuvastatin 10 mg tablet 10 mg PO DAILY #180 tabs 09/07/22 01/21/23 Rx tacrolimus 1 mg capsule, 1 mg PO BID #180 caps 09/07/22 01/21/23 Rx immediate-release mycophenolate mofetil 250 mg 750 mg PO BID #30 caps 09/14/22 01/21/23 Rx capsule escitalopram oxalate 10 mg tablet 20 mg PO QAM 11/17/22 01/21/23 History lisinopril 10 mg tablet 10 mg PO BID #180 tabs 11/22/22 01/21/23 Rx allopurinol 100 mg tablet 100 mg PO QAM 01/21/23 01/21/23 History bupropion HCl 300 mg 24 hr tablet, 300 mg PO QAM 01/21/23 01/21/23 History extended release Patient History Medical History Anxiety Gout History of gastroesophageal reflux (GERD) History of hypertension History of migraine Hypothyroidism Iron deficiency anemia Mandibular dysfunction "CHRONIC TIGHTENING" - recently referred to physical therapy Osteoarthritis Polycystic kidney disease, adult type (10/19/12) follows w/ Dr. Oshea; renal transplant 12/2018 Sleep apnea NO DEVICE Spontaneous pneumothorax H/O 2006 Surgical History History of arthroscopic knee surgery History of cholecystectomy History of mandibular surgery History of nephrectomy History of renal transplant 12/2018 [facility] History of surgery Left forearm AV fistula creation 12/14/2016 [facility] History of thoracotomy BL Family History Other No pertinent family history in first degree relatives Social History Smoking Status: Never smoker Second Hand Exposure: No; Do You Dip or Chew Tobacco: No; Tobacco Cessation Education Requested by Patient: No Hx Alcohol Use: Yes Alcohol type: beer and hard liquor Hx Substance Use: No Preferred Language: Bengali Communication Ability: Effective Visual Impairment: No Limitations Moving Worker Required: No Beliefs That Will Affect Care: None Current Living Situation: Spouse Feels Safe at Home: Yes Safety Concerns: Feels Safe At This Time Assistive Devices: None Review of Systems Review of Systems: Detailed review of system was otherwise unremarkable. Physical Exam Constitutional: WD/WN, vitals as above no acute distress Eyes: + anicteric sclerae Neck: normal visual inspection Respiratory: no respiratory distress Auscultation: lungs clear to auscultation bilaterally Cardiovascular: RRR, no murmur, no edema Skin: no rashes Neurologic: no focal motor deficits Psychiatric: Orientation: alert and oriented x 3 Results & Data Vital Signs (Past 12 Hours) Vital Signs Temp Pulse Pulse Resp BP BP Pulse Ox 01/22/23 11:02 85 18 118/76 96 01/22/23 07:27 36.5 C 74 16 93/57 L 97 01/22/23 01:15 36.4 C L 83 16 122/75 99 01/22/23 02:16 87 16 107/67 98 O2 Del Method 01/22/23 11:02 Room Air 01/22/23 07:27 Room Air 01/22/23 01:15 Room Air 01/22/23 02:16 Room Air PG Care Time/CCT Total # of Minutes Spent Total Time Spent with Patient: Total time spent is greater than 50% in coordination of care (as documented) at patient's floor/unit and/or counseling patient: Coding Level of Care Code 99661 IN/OBS CONSULT LVL 4,60M Diagnoses Kidney transplant status, living related donor Z94.0 Hypertension I10 Quadriceps tendon rupture S76.119A
[2023-01-22] MEDS ORDERED: ePHEDrine sulfate 50 MG/ML AMP IV PRN (14:53)
[2023-01-22] MEDS ORDERED: FLUMAZENIL 0.1 MG/1 ML 10 ML VIAL IV PRN (14:53)
[2023-01-22] MEDS ORDERED: NALOXONE HCL 0.4 MG/1 ML VIAL/CARP IV PRN (14:53)
[2023-01-22] MEDS ORDERED: fentaNYL citrate PF 100 MCG/2 ML VIAL IV PRN (14:53)
[2023-01-22] MEDS ORDERED: PROMETHAZINE HCL 12.5 MG in SODIUM CHLORIDE 0.9% 50 ML IV PRN (14:53)
[2023-01-22] MEDS ORDERED: ATROPINE SULFATE 0.1 MG/ML 10ML SYR IV PRN (14:53)
[2023-01-22] MEDS ORDERED: ONDANSETRON INJ 2 MG/ML 2 ML VIAL ONE (14:59)
--- NOTE | 2023-01-22 15:21 | Anesthesiology Progress Note ---
Date of Service January 22, 2023 Anesthesia Post Procedure Vital Signs Vital Signs: Temp Pulse Pulse Resp BP BP Pulse Ox 01/22/23 11:02 85 18 118/76 96 01/22/23 07:27 97.7 F 74 16 93/57 L 97 01/22/23 01:15 97.5 F L 83 16 122/75 99 01/22/23 02:16 87 16 107/67 98 01/22/23 00:46 91 H 01/21/23 20:45 86 18 94 01/21/23 20:44 88 17 96 01/21/23 20:50 85 01/21/23 20:42 99.0 F 87 18 124/70 95 O2 Del Method 01/22/23 11:02 Room Air 01/22/23 07:27 Room Air 01/22/23 01:15 Room Air 01/22/23 02:16 Room Air 01/22/23 00:46 01/21/23 20:45 01/21/23 20:44 01/21/23 20:50 01/21/23 20:42 Room Air Transfer of Care Handoff Completed per policy Notes Mental Status: alert / awake / arousable and participated in evaluation Patient Amnestic to Procedure: Yes Nausea / Vomiting: adequately controlled Pain: adequately controlled Airway Patency, RR, SpO2: stable & adequate BP & HR: stable & adequate Hydration State: stable & adequate Neuraxial Anesthesia: was administered and sensory block is resolving Anesthetic Complications: no major complications apparent and Pt Satisfied with anesthetic care
[2023-01-22] MEDS ORDERED: oxyCODONE HCL IR 5 MG TAB (IMMEDIATE RELEASE) PO PRN (16:16)
--- NOTE | 2023-01-22 16:27 | Operative Report ---
PG Post Operative Report Pre & Post Diagnosis Operation Date: 01/22/23 10:00 Pre-Op Diagnosis: Bilateral quadriceps tendon rupture Post-Op Diagnosis: Bilateral quadriceps tendon rupture I identified the patient and participated in the time-out.: Yes Procedure Operation Date: 01/22/23 10:00 Actual Procedures p Bilateral Open Quadriceps Tendon Repair(Bilateral) - James Calhoun MD Surgeon James Calhoun MD Licensing And Registration Director Prudencio Silver PA-C Estimated Blood Loss 10 Findings See Below Insertional rupture of the bilateral quadricep tendon with minimal tendinitis findings. Both repaired using Arthrex fiber tape in a running locking stitch with 4 suture cores transversing 3 bone tunnels and tied distally. #2 FiberWire retinacular repair of the medial lateral sides. Specimens None Anesthesia Type Spinal Complications none Disposition Accompanied Patient To Recovery: No Disposition: Recovery Room Indications 57-year-old male rupture both of his quadricep tendons last evening resulting in inability to bear weight or perform a straight leg raise. The diagnosis, prognosis, treatment options were reviewed in detail with the patient in the hospital after admission. My recommendation was for expeditious repair so that he can return to weightbearing activities with braces. Informed consent was obtained at the bedside. Description of Procedure On the day of surgery, the patient was greeted in the preoperative holding area. The informed consent was reviewed and confirmed by myself and the patient. The patient identified the surgical site and was marked by me. The patient was then turned over to anesthesia. Patient was then taken to the operating place upon the OR table and anesthesia was induced. Anesthesia performed a spinal anesthetic with excellent effect. A nonsterile tourniquet placed high on both thighs. The limbswas then prepped and draped in usual sterile fashion for bilateral knee surgery. Surgical timeout was called by the bean snapper nurse and verified all present. Antibiotics been infused equipment available and functional. Attention was directed to the left side first. An Esmarch bandage was used to exsanguinate the extremity, and the tourniquet was inflated to 250 mmHg for a total of 60 minutes. A midline incision over the patella was made to provide access to the quadricep tendon. We also exposed the distal pole the patella. Medial lateral skin flaps were developed and Bovie electrocautery was used for hemostasis. The peritenon was excised over the quadricep tendon and the tendon stump was debrided. The superior pole of patella or the insertion site of the quadricep tendon was debrided of all soft tissue using curette and rongeur. We thoroughly irrigated the hematoma and thoroughly irrigated the joint. The patella was then exposed using a bump underneath the knee. A central drill pin was placed using a 2 mm drill from the superior pole to the inferior pole. Using this pin as a central axis guide, two additional tunnels were made using a 2 mm drill on the medial and lateral sides. The position and trajectories were verified using fluoroscopy in the AP and lateral views. The Viewpoints suture passer was used from distal to proximal. #1 Vicryl was shuttled for later passing of our repair stitches. The quad tendon was captured with 2 Allis clamps. And then whipstitches were performed with running locking fiber tape suture for 2 cores on the medial and lateral aspect resulting in 4 fiber tape tails. Suture passage was full- thickness. The Vicryl loops were then used to pass a repair stitches back through the bone tunnels. The central tunnel contained the 2 medial tails. The far medial and lateral single fiber tape suture was then passed through the respective tunnels. The knee was placed in full extension and the tendon was then reduced forcefully using the tension on the fiber tape tails. A firm knot was tied after passing the tails to the medial and lateral aspect outside the patellar tendon distally. Firm knots were tied. We then thoroughly irrigated the soft tissues. # 2 Arthrex FiberWire suture was used on the medial and lateral retinacular repairs which extended back to the midline. Tourniquet was left down on the left knee and hemostasis was achieved with minimal electrocautery. Closure consisted of #1 Vicryl in the deep peritenon layer to cover the exposed tendon. Portions of the prepatellar bursa were then closed over the suture, where possible. 0 Vicryl suture was used in the deep subcuticular and fascial layers. The skin was approximated using 2-0 Vicryl. Final subcuticular closure was accomplished using angelica. The right knee was then positioned for the same procedure. An Esmarch bandage was used to exsanguinate the extremity, and the tourniquet was inflated to 250 mmHg for a total of 72 minutes. A midline incision over the patella was made to provide access to the quadricep tendon. We also exposed the distal pole the patella. Medial lateral skin flaps were developed and Bovie electrocautery was used for hemostasis. The peritenon was excised over the quadricep tendon and the tendon stump was debrided. The superior pole of patella or the insertion site of the quadricep tendon was debrided of all soft tissue using curette and rongeur. We thoroughly irrigated the hematoma and thoroughly irrigated the joint. The patella was then exposed using a bump underneath the knee. A central drill pin was placed using a 2 mm drill from the superior pole to the inferior pole. Using this pin as a central axis guide, two additional tunnels were made using a 2 mm drill on the medial and lateral sides. The position and trajectories were verified using fluoroscopy in the AP and lateral views. The Viewpoints suture passer was used from distal to proximal. #1 Vicryl was shuttled for later passing of our repair stitches. The quad tendon was captured with 2 Allis clamps. And then whipstitches were performed with running locking fiber tape suture for 2 cores on the medial and lateral aspect resulting in 4 fiber tape tails. Suture passage was full- thickness. The Vicryl loops were then used to pass a repair stitches back through the bone tunnels. The central tunnel contained the 2 medial tails. The far medial and lateral single fiber tape suture was then passed through the resp ective tunnels. The knee was placed in full extension and the tendon was then reduced forcefully using the tension on the fiber tape tails. A firm knot was tied after passing the tails to the medial and lateral aspect outside the patellar tendon distally. Firm knots were tied. We then thoroughly irrigated the soft tissues. # 2 Arthrex FiberWire suture was used on the medial and lateral retinacular repairs which extended back to the midline. The tourniquet was deflated. Hemostasis was gained using minimal Bovie electrocautery. Closure consisted of #1 Vicryl in the deep peritenon layer to cover the exposed tendon. Portions of the prepatellar bursa were then closed over the suture, where possible. 0 Vicryl suture was used in the deep subcuticular and fascial layers. The skin was approximated using 2-0 Vicryl. Final subcuticular closure was accomplished using angelica. The wounds were dressed with the jumpstart dressing from the fiber tape kit followed by sterile gauze, ABD, and web roll. An Edgar wrap was placed from toes to thigh. The limbs were placed in a standard postoperative range of motion brace locked in full extension, set for a lockout of 30 degrees flexion. Patient tolerated the procedure well, remained awake and talkative throughout the case, and was transported to the PACU in stable condition. Disposition: Patient will remain in the locked range of motion brace in full extension. Gentle range of motion limited 0 to 30 can begin with therapy. Only active flexion supported and in a comfortable range. No active extension, only passive back to 0. He can weight-bear as tolerated with his brace in place. Routine pain management will be prescribed. DVT prophylaxis will consist of early ambulation and a direct oral anticoagulant due to renal precautions. DVT prophylaxis should be planned for 6 weeks Physician psychiatric nursing assistant attestation: Prudencio Silver PA-C was present and scrubbed for the duration of the case. He was essential to prepping/draping, patient positioning, retraction, and assistance with wound closure. I attest to the content of the Intraoperative Record and any orders documented therein. Any exceptions are noted below.
--- NOTE | 2023-01-22 16:30 | Procedure Note ---
Procedure Note Date of Service January 22, 2023 Note Quadriceps Tendon Repair Rehabilitation Guide Phase 1 (0 6 weeks): PROTECTION PHASE WBing in full extension with brace locked. ROM: Supported Active flexion to comfortable limit, and Passive Extension only. 0-30 (week 1-2), 0-60 (week 3-4), 0-90 (week 5-6). No passive flexion, only gentle supported active flexion within limits. Straight leg raise in brace OK when comfort allows. Quad sets OK. Assist device (crutches/walker as needed) Focus on gluteal and core strength. Phase 2 (6 12 weeks): MOTION CONFUCIANIST, GAIT TRAINING WBing with brace open 0 30 degrees. ROM exercises can advance in comfortable range. No passive stretch of extensor mechanism active flexion/gravity assist/heel slides. Assist device (crutches/walker as needed). Phase 3 (12+ weeks): STRENGTH CONFUCIANIST Advance WBing available in available comfortable range. Brace lockout at limits if needed. Continue ROM exercises and advance as pain allows. No passive stretch of extensor mechanism active flexion/gravity assist/heel slides. Assist device (crutches/walker as needed) Coding
[2023-01-22] MEDS: oxyCODONE HCL IR 5 MG TAB (IMMEDIATE RELEASE) PO PRN ×2 (18:07→19:55)
--- NOTE | 2023-01-22 18:33 | Fluoroscopy Report ---
INTRAOPERATIVE RADIOGRAPHS CLINICAL HISTORY: Quadriceps tendon repair. Fluoro time: 3 seconds Exposure: 0.19 mGy FINDINGS: 2 spot fluoroscopic views of the left knee are correlated with radiographs dated 01/21/2023. A pin transfixes the patella from a superior approach. Overlying soft tissue edema is noted. IMPRESSION: Intraoperative images of the left knee as above. Electronically signed by: Manuel Dinh M.D. 01/22/2023 6:32 PM
--- NOTE | 2023-01-22 18:34 | Fluoroscopy Report ---
INTRAOPERATIVE RADIOGRAPHS CLINICAL HISTORY: Quadriceps tendon repair. Fluoro time: 3 seconds. Exposure: 0.16 mGy FINDINGS: 2 spot fluoroscopic views of the right knee are correlated with radiographs dated 01/21/2023 . A pin transfixes the patella from a superior approach. Overlying soft tissue edema is noted. Skin c lips are seen on the lateral projection. IMPRESSION: Intraoperative images of the right knee as above. Electronically signed by: Manuel Dinh M.D. 01/22/2023 6:33 PM
[2023-01-22] MEDS ORDERED: ACETAMINOPHEN 500 MG TAB ONE (19:53)
[2023-01-22] MEDS: ONDANSETRON 4 MG OD TAB PO PRN (20:02)
[2023-01-22] MEDS ORDERED: CYCLOBENZAPRINE HCL 5 MG TAB PO STA ×2 (20:14→21:21)
[2023-01-22] MEDS ORDERED: HYDROmorphone INJ 0.5 MG/0.5 ML SYR IV STA ×2 (20:40→23:27)
[2023-01-22] MEDS ORDERED: HYDROmorphone INJ 0.5 MG/0.5 ML SYR IV PRN (21:50)
[2023-01-23] MEDS: diazePAM 5 MG TABLET PO PRN ×3 (00:48→17:20)
[2023-01-23] MEDS: ONDANSETRON 4 MG OD TAB PO PRN (00:48)
[2023-01-23] MEDS: HYDROmorphone INJ 0.5 MG/0.5 ML SYR IV PRN ×3 (03:59→11:03)
[2023-01-23] MEDS: LEVOTHYROXINE SODIUM 75 MCG TABLET PO SCH (06:00)
[2023-01-23 06:48] LABS: Basophils # (auto) 0.01 K/uL (0-0.2); Basophils % (auto) 0.1 %; Hematocrit (blood only) 36.8 % (42.0-52.0); Hemoglobin 12.6 g/dl (14.0-18.0); Immature Granulocytes # (auto) 0.06 K/uL (0.01-0.20); Immature Granulocytes % (auto) 0.7 %; Lymphocytes # (auto) 0.77 K/uL (1.2-3.4); Lymphocytes % (auto) 8.4 %; Mean Corpuscular Hemoglobin 31.8 pg (25.0-34.0); Mean Corpuscular Hgb Conc 34.2 g/dL (32.0-36.0); Mean Corpuscular Volume 92.9 fL (80.0-100.0); Mean Platelet Volume 9.9 fL (9.4-12.4); Monocytes # (auto) 0.76 K/uL (0.11-0.59); Monocytes % (auto) 8.3 %; Neutrophils # (auto) 7.56 K/uL (1.40-6.50); Neutrophils % (auto) 82.5 %; Platelet Count 201 K/uL (130-400); RDW Coefficient of Variation 11.9 % (11.5-14.5); RDW Standard Deviation 40.9 fL (36.4-46.3); Red Blood Count 3.96 M/uL (4.70-6.10); White Blood Count 9.16 K/ul (4.8-10.8)
[2023-01-23 07:29] LABS: BUN Creatinine Ratio 15.1 (10-20); Calcium 8.5 mg/dl (8.6-10.3); Creatinine Clr Calc Pharmacy 58.4 ml/min; Est GFR (African American) 54.6 ml/min; Est GFR (Non-African American) 47.2 ml/min; Magnesium 1.6 mg/dl (1.7-2.4); Phosphorus 3.3 mg/dl (2.5-4.9); Potassium 4.7 mmol/L (3.5-5.1)
[2023-01-23] MEDS: METHYLPHENIDATE HCL 10 MG TABLET PO SCH ×3 (08:09→17:27)
[2023-01-23] MEDS: ACETAMINOPHEN 500 MG TAB PO PRN ×2 (08:10→17:20)
[2023-01-23] MEDS: ROSUVASTATIN CALCIUM 10 MG TAB PO SCH (08:12)
[2023-01-23] MEDS: MYCOPHENOLATE MOFETIL 250 MG CAP PO SCH ×2 (08:12→20:19)
[2023-01-23] MEDS: ESCITALOPRAM OXALATE 20 MG TAB PO SCH (08:12)
--- NOTE | 2023-01-23 08:12 | Hospitalist Progress Note ---
Date of Service January 23, 2023 Assessment & Plan (1) Rupture, tendon, patellar: Plan: 57-year-old man with history of polycystic kidney disease (s/p renal transplant), hypertension, and hyperlipidemia who presents for an acute knee injury, presumed bilateral patellar tendon rupture. Now awaiting surgical evaluation/intervention. Bilateral patellar tendon rupture Unknown etiology, though bilateral rupture suggests underlying tendinosis/t endinopathy hx patella tendinitis and [place] [employer] and [place] on left and then recovery step after left leg gave out w/ same injury Ortho consulted s/p Bilateral Open Quadriceps Tendon Repair(Bilateral) - James Calhoun MD. EBL 10cc Hgb 12.6, stable on repeat. WBC wnl, afebrile Ancef liliana-operative abx D/c IVF this afternoon, Cr improved and stable. Lisinopril resumed for HTN Pain control/antiemetics prn -- Dr Calhoun adjusted (see note), and valium effective for patient Mag low 1.6, IV replacement ordered PT/OT consults pending -- likely need rehab initially, official eval pending Heparin SQ transitioned to Xarelto given likely prolonged immobilization/recovery Monitor labs in AM Renal transplant recipient Follows locally with Dr Gutiérrez, [facility] for transplant history (donor - sister). 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 mycophenolate 750 mg twice daily, tacrolimus 1 mg twice daily Nephrology on consult -- appreciate assistance Cr stable on repeat HTN Lisnopril 10mg BID --> PLACED ON HOLD AM 01/22 and in evening given borderline HTN and ordered IVF BP 161/82 this morning, Cr improved and lisinopril resumed Monitor BP/kidney function in follow up Anxiety/depression Bupropion 150 mg, Lexapro 20 mg Hyperlipidemia Rosuvastatin 10 mg Gout Home allopurinol 100 mg daily Hypothyroidism Home levothyroxine 75 mcg daily Code: Full code Dispo: Med-Surg FEN/GI: NPO DVT Prophylaxis: Heparin 5000 units SQ pre-op --> switched to Xarelto as above (2) Kidney transplant status, living related donor: (3) Hypertension: (4) Hypercholesteremia: (5) Gout: (6) Hypomagnesemia: (7) Quadriceps tendon rupture: Plan awaiting PT/OT evals, likely needing inpatient rehab monitor labs in AM Admission and Anticipated Discharge Date Admission Date: January 21, 2023 Supervising Physician Co-Signing Physician Notes The patient was not seen by me. The chart was reviewed. Case discussed with DANILO Dickinson. Agree with assessment and plan Subjective Eval this morning, doing well, having spasm but getting Valium w/ improvement. Discussed w/ ortho about pain medication management. Also Xarelto for DVT prophylaxis. Discussed resuming lisinopril for BP as well and discontinue IVF. No keller placed. Not passing gas but +BS on exam, will ensure bowel regimen. Physical Exam Physical Exam: General: WN/WD male laying flat in bed initially upon entry, NAD and resting HEENT: head atraumatic, normocephalic, mm slightly dry/cracked lips, Resp: CTA, no w/c, on room air CV: RRR, no significant m/r/g, no pitting edema to feet, pulses palpable, cap refill wnl. L arm AV fistula GI: +BS/slightly hypoactive, slight distension, nontender/no guarding/rebound : no keller MSK/Neuro: b/L braces in placed to knees, NVI and toes mobile, pulses palpable, cap refill wnl Psych: AOx3, pleasant and cooperative Results & Data Results & Data Vital Signs (Past 12 Hours) Vital Signs Temp Pulse Pulse Resp BP Pulse Ox O2 Del Method 01/23/23 08:00 37.1 C 92 H 20 161/82 H 99 Room Air 01/23/23 04:22 36.9 C 84 16 129/85 97 Room Air 01/22/23 21:58 36.7 C 91 H 17 147/79 H 97 Room Air Laboratory Results 01/23/23 01/23/23 Range/Units 06:00 06:00 WBC 9.16 (4.8-10.8) K/ul RBC 3.96 L (4.70-6.10) M/uL Hgb 12.6 L (14.0-18.0) g/dl Hct 36.8 L (42.0-52.0) % MCV 92.9 (80.0-100.0) fL MCH 31.8 (25.0-34.0) pg MCHC 34.2 (32.0-36.0) g/dL RDW Std Deviation 40.9 (36.4-46.3) fL RDW Coeff of Yue 11.9 (11.5-14.5) % Plt Count 201 (130-400) K/uL MPV 9.9 (9.4-12.4) fL Immature Gran % (Auto) 0.7 % Neut % (Auto) 82.5 % Lymph % (Auto) 8.4 % [facility] % (Auto) 8.3 % Eos % (Auto) 0.0 % Baso % (Auto) 0.1 % Neut # (Auto) 7.56 H (1.40-6.50) K/uL Lymph # (Auto) 0.77 L (1.2-3.4) K/uL [facility] [place] # (Auto) 0.76 H (0.11-0.59) K/uL Eos # (Auto) 0.00 (0-0.50) K/uL Baso # (Auto) 0.01 (0-0.2) K/uL Immature Gran # (Auto) 0.06 (0.01-0.20) K/uL Sodium 138 (136-145) mmol/L Potassium 4.7 (3.5-5.1) mmol/L Chloride 106 (98-107) mmol/L Carbon Dioxide 25 (21-32) mmol/L Anion Gap 7 (3-11) BUN 24 H (6-23) mg/dl Creatinine 1.59 H (0.6-1.4) mg/dl Est Cr Clr Drug Dosing 58.4 ml/min Est GFR ( Amer) 54.6 ml/min Est GFR (Non-Af Amer) 47.2 ml/min BUN/Creatinine Ratio 15.1 (10-20) Glucose 126 H (70-99(Fasting)) mg/dl Calcium 8.5 L (8.6-10.3) mg/dl Phosphorus 3.3 D (2.5-4.9) mg/dl Magnesium 1.6 L (1.7-2.4) mg/dl PG Care Time/CCT Total # of Minutes Spent Total Time Spent with Patient: Total time spent is greater than 50% in coordination of care (as documented) at patient's floor/unit and/or counseling patient: Coding Level of Care Code 68085 SUB INP/OBS CARE 2/35MIN Diagnoses Rupture, tendon, patellar S86.312Z Kidney transplant status, living related donor Z94.0 Hypertension I10 Hypercholesteremia E78.00 Gout M10.9 Hypomagnesemia E83.42 Quadriceps tendon rupture S76.119P
[2023-01-23] MEDS: buPROPion XL 150 MG TABCR PO SCH (08:13)
[2023-01-23] MEDS: allopurinoL 100 MG TAB PO SCH (08:13)
[2023-01-23] MEDS: buPROPion XL 300 MG TABCR PO SCH (08:14)
[2023-01-23] MEDS: HEPARIN SOD 5,000 UNIT/0.5 ML VIAL SQ SCH (08:14)
[2023-01-23] MEDS: TACROLIMUS 1 MG CAP PO SCH ×2 (08:14→20:19)
[2023-01-23] MEDS: MAGNESIUM OXIDE 400 MG TAB PO SCH (08:14)
[2023-01-23] MEDS: CHOLECALCIFEROL 1,000 UNITS 25 MCG TAB PO SCH (08:14)
[2023-01-23] MEDS: SODIUM CHLORIDE 0.9% 1000ML 1,000 ML IV SCH (09:10)
[2023-01-23] MEDS: MAGNESIUM SULFATE / D5W 1 GM/100 ML BAG IV SCH ×2 (09:13→11:28)
[2023-01-23] MEDS: lisinopril 10 MG TAB PO SCH ×2 (09:14→20:19)
--- NOTE | 2023-01-23 09:49 | Orthopedic Progress Note ---
Date of Service January 23, 2023 Assessment & Plan (1) Quadriceps tendon rupture: POD 1 bilateral open quadricep tendon repair for acute injuries. Expected postop pain. -Increased the oral and parenteral narcotics given his previous experience and suboptimal control overnight. Will need to be tapered as pain improves -Agree with Valium 5 mg 3 times daily as needed for the spasm like contribution of pain. -PT/OT: I added the rehabilitation protocol to a procedure note. -OOB with assistance only and with braces locked in extension for now. The braces may come off or be loosened in bed. Nonweightbearing range of motion 0- 30. -Complete 24-hour antibiotic prophylaxis today. -Dressing should remain on until postop day 3. Disposition: Expected need to remain inpatient for 24-48 hours for improved pain control before transition to next level of care, guided PT/OT recommendations. I expect need for acute rehab given the bilateral problem. Subjective Reports significant pain overnight, since the spinal anesthetic wore off. He felt that the did not get much relief from the pain but could tell there was some effect with mild nausea when taking oxycodone. Dilaudid was effective but not complete. He has had previous surgeries and opioid pain medications in the past. He did feel some relief with the Valium, and agrees that this is a good adjunct with spasm. He is discussed the pain plan with his nurse this morning, and we have a schedule established. Review of Systems All systems reviewed & are unremarkable except as noted in HPI & below. Physical Exam BLE: Both lower extremities remain well dressed. There is no evidence of drainage through the Edgar wrap's. The ROM braces were in plac. I did loosen the peace and the Velcro. He is distally neurovascular intact. Constitutional WD/WN, vitals as above no acute distress and not intoxicated appearing Respiratory normal respiratory effort; no labored breathing Cardiovascular Extremities: normal capillary refill Results & Data Results & Data Laboratory Results Laboratory Tests 01/22/23 01/23/23 01/23/23 05:40 06:00 06:00 Hct 36.2 L 36.8 L Creatinine 1.59 H Magnesium 1.6 L Diagnostic Findings PG Care Time/CCT Total # of Minutes Spent Total Time Spent with Patient: Total time spent is greater than 50% in coordination of care (as documented) at patient's floor/unit and/or counseling patient: Coding Level of Care Code 85484 Post Operative Follow-Up Diagnoses Quadriceps tendon rupture S76.119A
[2023-01-23] MEDS: oxyCODONE HCL IR 5 MG TAB (IMMEDIATE RELEASE) PO PRN ×3 (10:04→21:58)
[2023-01-23] MEDS: ceFAZolin 2000MG 2,000 MG/15 ML SYR IV SCH ×2 (11:29→18:46)
--- NOTE | 2023-01-23 12:26 | Nephrology Progress Note ---
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 On admission creatinine was 1.8. Renal function improved, creatinine back to baseline, electrolyte acceptable. Blood pressure slightly elevated most likely related to pain. -- discontinue IV fluid, continue lisinopril, adequate pain control. -- continue tacrolimus and mycophenolate home does -- check cbc, renal function, electrolyte tomorrow -- left arm nephrology precaution ( AVF) will follow Admission and Anticipated Discharge Date Admission Date: January 21, 2023 Abiodun Barahona was seen this morning with his at bedside. Had the surgery yesterday uneventful however has been having significant pain and had difficulty sleeping with the pain although this morning analgesic regimen was changed with slight improvement. Review of Systems Review of Systems: Detailed review of system was otherwise unremarkable. Physical Exam Constitutional: WD/WN, vitals as above + acute distress (with pain) detail exam was not done due to distress with pain. Psychiatric: Orientation: alert and oriented x 3 Results & Data Vital Signs (Past 12 Hours) Vital Signs Temp Pulse Pulse Resp BP Pulse Ox O2 Del Method 01/23/23 08:00 37.1 C 92 H 20 161/82 H 99 Room Air 01/23/23 04:22 36.9 C 84 16 129/85 97 Room Air PG Care Time/CCT Total # of Minutes Spent Total Time Spent with Patient: Total time spent is greater than 50% in coordination of care (as documented) at patient's floor/unit and/or counseling patient: Coding Level of Care Code 47184 SUB INP/OBS CARE 2/35MIN Diagnoses Kidney transplant status, living related donor Z94.0 Hypertension I10 Quadriceps tendon rupture S76.119A
[2023-01-23] MEDS: RIVAROXABAN 10 MG TABLET PO SCH (12:57)
[2023-01-23] MEDS: DOCUSATE SODIUM/SENNA 50/8.6MG TAB PO SCH (12:57)
[2023-01-24] MEDS: ACETAMINOPHEN 500 MG TAB PO PRN ×2 (02:23→11:36)
[2023-01-24] MEDS: oxyCODONE HCL IR 5 MG TAB (IMMEDIATE RELEASE) PO PRN ×3 (02:24→22:10)
[2023-01-24] MEDS: diazePAM 5 MG TABLET PO PRN ×2 (06:01→18:11)
[2023-01-24] MEDS: LEVOTHYROXINE SODIUM 75 MCG TABLET PO SCH (06:01)
[2023-01-24 07:22] LABS: Basophils # (auto) 0.02 K/uL (0-0.2); Basophils % (auto) 0.2 %; Eosinophils # (auto) 0.05 K/uL (0-0.50); Eosinophils % (auto) 0.5 %; Hematocrit (blood only) 33.5 % (42.0-52.0); Hemoglobin 11.5 g/dl (14.0-18.0); Immature Granulocytes # (auto) 0.05 K/uL (0.01-0.20); Immature Granulocytes % (auto) 0.5 %; Lymphocytes # (auto) 0.91 K/uL (1.2-3.4); Lymphocytes % (auto) 9.1 %; Mean Corpuscular Hemoglobin 31.8 pg (25.0-34.0); Mean Corpuscular Hgb Conc 34.3 g/dL (32.0-36.0); Mean Corpuscular Volume 92.5 fL (80.0-100.0); Mean Platelet Volume 9.9 fL (9.4-12.4); Monocytes # (auto) 0.66 K/uL (0.11-0.59); Monocytes % (auto) 6.6 %; Neutrophils # (auto) 8.33 K/uL (1.40-6.50); Neutrophils % (auto) 83.1 %; Platelet Count 176 K/uL (130-400); RDW Coefficient of Variation 12.1 % (11.5-14.5); Red Blood Count 3.62 M/uL (4.70-6.10); White Blood Count 10.02 K/ul (4.8-10.8)
[2023-01-24 07:40] LABS: BUN Creatinine Ratio 12.5 (10-20); Calcium 8.3 mg/dl (8.6-10.3); Est GFR (African American) 57.7 ml/min; Est GFR (Non-African American) 49.8 ml/min; Phosphorus 1.9 mg/dl (2.5-4.9); Potassium 4.4 mmol/L (3.5-5.1)
[2023-01-24] MEDS ORDERED: SODIUM PHOSPHATE 3 MMOL/1 ML INFUSION IV STA (08:16)
[2023-01-24] MEDS ORDERED: SODIUM PHOSPHATE 15 MMOL in SODIUM CHLORIDE 0.9% 250 ML IV ONE (08:30)
--- NOTE | 2023-01-24 08:36 | Orthopedic Progress Note ---
Date of Service January 24, 2023 Assessment & Plan (1) Quadriceps tendon rupture: POD 2 bilateral open quadricep tendon repair for acute injuries. Improved pain control. Making expected progress. -Taper parenteral pain control as able -PT/OT: see rehabilitation protocol to a procedure note. -OOB with assistance only and with braces locked in extension for now. The braces may come off or be loosened in bed. Nonweightbearing range of motion 0- 30. -Dressing should remain on until postop day 3. Disposition: Expected need to remain inpatient for 24-48 hours for improved pain control before transition to next level of care, guided PT/OT recommendations. I expect need for acute rehab given the bilateral problem. Subjective Reports more tolerable pain through the day yesterday. He was able to stand with physical therapy. No new issues. Review of Systems All systems reviewed & are unremarkable except as noted in HPI & below. Physical Exam BLE: Dressings appear undisturbed. There is no evidence of drainage. Braces are well fit. No concerns Results & Data Results & Data Laboratory Results . Diagnostic Findings . PG Care Time/CCT Total # of Minutes Spent Total Time Spent with Patient: Total time spent is greater than 50% in coordination of care (as documented) at patient's floor/unit and/or counseling patient: Coding Level of Care Code 35459 Post Operative Follow-Up Diagnoses Quadriceps tendon rupture S76.119A
[2023-01-24] MEDS: METHYLPHENIDATE HCL 10 MG TABLET PO SCH ×3 (09:32→18:04)
[2023-01-24] MEDS: TACROLIMUS 1 MG CAP PO SCH ×2 (09:33→20:02)
[2023-01-24] MEDS: allopurinoL 100 MG TAB PO SCH (09:33)
[2023-01-24] MEDS: buPROPion XL 150 MG TABCR PO SCH (09:33)
[2023-01-24] MEDS: buPROPion XL 300 MG TABCR PO SCH (09:34)
[2023-01-24] MEDS: ESCITALOPRAM OXALATE 20 MG TAB PO SCH (09:34)
[2023-01-24] MEDS: MYCOPHENOLATE MOFETIL 250 MG CAP PO SCH ×2 (09:35→20:02)
[2023-01-24] MEDS: RIVAROXABAN 10 MG TABLET PO SCH (09:36)
[2023-01-24] MEDS: ROSUVASTATIN CALCIUM 10 MG TAB PO SCH (09:36)
[2023-01-24] MEDS: MAGNESIUM OXIDE 400 MG TAB PO SCH (09:36)
[2023-01-24] MEDS: DOCUSATE SODIUM/SENNA 50/8.6MG TAB PO SCH (09:37)
[2023-01-24] MEDS: lisinopril 10 MG TAB PO SCH ×2 (10:37→20:25)
[2023-01-24] MEDS: CHOLECALCIFEROL 1,000 UNITS 25 MCG TAB PO SCH (10:51)
[2023-01-24] MEDS: HYDROmorphone INJ 0.5 MG/0.5 ML SYR IV PRN (12:32)
--- NOTE | 2023-01-24 15:18 | Nephrology Progress Note ---
Date of Service January 24, 2023 Assessment & Plan (1) Kidney transplant status, living related donor: (2) Hypertension: (3) Quadriceps tendon rupture: Plan Dr. 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 On admission creatinine was 1.8. Renal function improved, creatinine back to baseline, electrolyte acceptable. Blood pressure Has been variable and mostly running low probably effect from analgesic. -- Okay to continue on lisinopril however, if patient is not comfortable co nsidering low blood pressure feel dizzy or lightheaded, okay to hold -- continue tacrolimus and mycophenolate home does -- check cbc, renal function, electrolyte tomorrow -- left arm nephrology precaution ( AVF) will follow Admission and Anticipated Discharge Date Admission Date: January 24, 2023 Subjective Jun was seen this morning with his at bedside. surgical pain is much better and he briefly participated with physical therapy and plan to continue physical therapy. Blood pressure has been variable but running low occasionally. renal function stable, electrolyte acceptable. Review of Systems Review of Systems: Detailed review of system was otherwise unremarkable. Physical Exam Constitutional: WD/WN, vitals as above + acute distress (with pain) Eyes: + anicteric sclerae Neck: normal visual inspection Respiratory: no respiratory distress Auscultation: lungs clear to auscultation bilaterally Cardiovascular: RRR, no murmur, no edema Skin: no rashes Neurologic: no focal motor deficits Psychiatric: Orientation: alert and oriented x 3 Results & Data Vital Signs (Past 12 Hours) Vital Signs Temp Pulse Pulse Resp BP Pulse Ox O2 Del Method 01/24/23 08:00 Nasal Cannula 01/24/23 10:07 88 17 100/66 99 Nasal Cannula 01/24/23 09:21 96/58 L 01/24/23 08:00 36.7 C 100 H 16 99/58 L 99 Nasal Cannula O2 Flow Rate 01/24/23 08:00 2 01/24/23 10:07 2 01/24/23 09:21 01/24/23 08:00 2 PG Care Time/CCT Total # of Minutes Spent Total Time Spent with Patient: Total time spent is greater than 50% in coordination of care (as documented) at patient's floor/unit and/or counseling patient: Coding Level of Care Code 30106 SUB INP/OBS CARE 2MIN Diagnoses Kidney transplant status, living related donor Z94.0 Hypertension I10 Quadriceps tendon rupture S76.119A
--- NOTE | 2023-01-24 17:01 | Hospitalist Progress Note ---
Date of Service January 24, 2023 Assessment & Plan (1) Rupture, tendon, patellar: Plan: 57-year-old man with history of polycystic kidney disease (s/p renal transplant), hypertension, and hyperlipidemia who presents for an acute knee injury, presumed bilateral patellar tendon rupture. Now awaiting surgical evaluation/intervention. Bilateral patellar tendon rupture Unknown etiology, though bilateral rupture suggests underlying tendinosis/t endinopathy hx patella tendinitis and reported [place] [employer] and landing on left and then recovery step after left leg gave out w/ same injury Ortho consulted s/p Bilateral Open Quadriceps Tendon Repair(Bilateral) - James Calhoun MD. EBL 10cc Hgb 12.6, stable on repeat. WBC wnl, afebrile Ancef liliana-operative abx D/c IVF this afternoon, Cr improved and stable. Lisinopril resumed for HTN Pain control/antiemetics prn -- Dr Calhoun adjusted (see note), and valium effective for patient Mag low 1.6, IV replacement ordered PT/OT consults pending -- likely need rehab initially, official eval pending Heparin SQ transitioned to Xarelto given likely prolonged immobilization/recovery Monitor labs in AM Anxiety/depression Bupropion 150 mg, Lexapro 20 mg Hypothyroidism Home levothyroxine 75 mcg daily Code: Full code Dispo: Med-Surg FEN/GI: NPO DVT Prophylaxis: Heparin 5000 units SQ pre-op --> switched to Xarelto as above (2) Kidney transplant status, living related donor: Plan: Renal transplant recipient Follows locally with Dr Gutiérrez, [facility] for transplant history (donor - sister). 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 mycophenolate 750 mg twice daily, tacrolimus 1 mg twice daily Nephrology on consult -- appreciate assistance Cr stable on repeat (3) Hypertension: Plan: Lisinopril 10mg BID --> PLACED ON HOLD AM 01/22 and in evening given borderline HTN and ordered IVF BP 95/57, Cr improved and resumed 01/23, then held again today Monitor BP/kidney function in follow up Reviewed BMP and reordered for AM labs (4) Hypercholesteremia: Plan: Continue Rosuvastatin 10 mg (5) Gout: Plan: Continue Allopurinol (6) Hypomagnesemia: Plan: Improved and will reorder labs for the AM (7) Quadriceps tendon rupture: Plan: Ortho following and per their note: POD 2 bilateral open quadricep tendon repair for acute injuries. Improved pain control. Making expected progress. -Taper parenteral pain control as able -PT/OT: see rehabilitation protocol to a procedure note. -OOB with assistance only and with braces locked in extension for now. The braces may come off or be loosened in bed. Nonweightbearing range of motion 0- 30. -Dressing should remain on until postop day 3. Plan awaiting PT/OT [email or web address], likely needing inpatient rehab monitor labs in AM Admission and Anticipated Discharge Date Admission Date: January 24, 2023 Subjective Patient is awake resting in bed. He has no new complaints today. Review of Systems Review of Systems: Patient denies any chest pain, SOB, nausea, vomiting, abdominal pain. Physical Exam Constitutional: WD/WN, vitals as above Neck: trachea midline, no thyromegaly Respiratory: normal respiratory effort, lungs clear to auscultation Cardiovascular: RRR, no murmur, no edema Gastrointestinal (Abdomen): normal bowel sounds, soft, nontender, no hepatosplenomegaly Musculoskeletal: bilateral braces in place, DP, PT pulses +2 symmetric, intact sensation and good capillary refill Psychiatric: A+Ox3, euthymic affect Results & Data Results & Data Vital Signs (Past 12 Hours) Vital Signs Temp Pulse Pulse Resp BP Pulse Ox O2 Del Method 01/24/23 15:13 36.6 C 87 18 95/57 L 97 Room Air 01/24/23 08:00 Nasal Cannula 01/24/23 10:07 88 17 100/66 99 Nasal Cannula 01/24/23 09:21 96/58 L 01/24/23 08:00 36.7 C 100 H 16 99/58 L 99 Nasal Cannula O2 Flow Rate 01/24/23 15:13 01/24/23 08:00 2 01/24/23 10:07 2 01/24/23 09:21 01/24/23 08:00 2 Laboratory Results Abnormal lab results 01/24/23 01/24/23 Range/Units 06:56 06:56 RBC 3.62 L (4.70-6.10) M/uL Hgb 11.5 L (14.0-18.0) g/dl Hct 33.5 L (42.0-52.0) % Neut # (Auto) 8.33 H (1.40-6.50) K/uL Lymph # (Auto) 0.91 L (1.2-3.4) K/uL [place] # (Auto) 0.66 H (0.11-0.59) K/uL Sodium 135 L (136-145) mmol/L Creatinine 1.52 H (0.6-1.4) mg/dl Glucose 134 H (70-99(Fasting)) mg/dl Calcium 8.3 L (8.6-10.3) mg/dl Phosphorus 1.9 L D (2.5-4.9) mg/dl PG Care Time/CCT Total # of Minutes Spent Total Time Spent with Patient: Total time spent is greater than 50% in coordination of care (as documented) at patient's floor/unit and/or counseling patient: Coding Level of Care Code 46595 SUB INP/OBS CARE 2/35MIN Diagnoses Rupture, tendon, patellar S86.819A Kidney transplant status, living related donor Z94.0 Hypertension I10 Hypercholesteremia E78.00 Gout M10.9 Hypomagnesemia E83.42 Quadriceps tendon rupture S76.119A
[2023-01-25] MEDS: oxyCODONE HCL IR 5 MG TAB (IMMEDIATE RELEASE) PO PRN ×4 (02:26→18:25)
[2023-01-25] MEDS: ACETAMINOPHEN 500 MG TAB PO PRN (05:01)
[2023-01-25] MEDS: LEVOTHYROXINE SODIUM 75 MCG TABLET PO SCH (05:56)
[2023-01-25 08:05] LABS: Hematocrit (blood only) 30.2 % (42.0-52.0); Hemoglobin 10.4 g/dl (14.0-18.0); Mean Corpuscular Hemoglobin 31.8 pg (25.0-34.0); Mean Corpuscular Hgb Conc 34.4 g/dL (32.0-36.0); Mean Corpuscular Volume 92.4 fL (80.0-100.0); Platelet Count 174 K/uL (130-400); RDW Coefficient of Variation 11.9 % (11.5-14.5); RDW Standard Deviation 40.5 fL (36.4-46.3); Red Blood Count 3.27 M/uL (4.70-6.10); White Blood Count 6.86 K/ul (4.8-10.8)
[2023-01-25] MEDS: lisinopril 10 MG TAB PO SCH (08:09)
[2023-01-25] MEDS: MYCOPHENOLATE MOFETIL 250 MG CAP PO SCH ×2 (08:09→19:41)
[2023-01-25] MEDS: TACROLIMUS 1 MG CAP PO SCH ×2 (08:09→19:41)
[2023-01-25] MEDS: MAGNESIUM OXIDE 400 MG TAB PO SCH (08:10)
[2023-01-25] MEDS: ESCITALOPRAM OXALATE 20 MG TAB PO SCH (08:10)
[2023-01-25] MEDS: allopurinoL 100 MG TAB PO SCH (08:10)
[2023-01-25] MEDS: DOCUSATE SODIUM/SENNA 50/8.6MG TAB PO SCH (08:10)
[2023-01-25] MEDS: buPROPion XL 150 MG TABCR PO SCH (08:10)
[2023-01-25] MEDS: buPROPion XL 300 MG TABCR PO SCH (08:11)
[2023-01-25] MEDS: ROSUVASTATIN CALCIUM 10 MG TAB PO SCH (08:11)
[2023-01-25] MEDS: RIVAROXABAN 10 MG TABLET PO SCH (08:11)
[2023-01-25] MEDS: CHOLECALCIFEROL 1,000 UNITS 25 MCG TAB PO SCH (08:13)
[2023-01-25] MEDS: METHYLPHENIDATE HCL 10 MG TABLET PO SCH ×3 (08:18→16:39)
[2023-01-25 08:24] LABS: BUN Creatinine Ratio 12.5 (10-20); Calcium 8.2 mg/dl (8.6-10.3); Est GFR (African American) 57.7 ml/min; Est GFR (Non-African American) 49.8 ml/min; Magnesium 1.8 mg/dl (1.7-2.4); Phosphorus 2.4 mg/dl (2.5-4.9); Potassium 4.3 mmol/L (3.5-5.1)
[2023-01-25] MEDS: diazePAM 5 MG TABLET PO PRN (11:43)
--- NOTE | 2023-01-25 13:13 | Hospitalist Progress Note ---
Date of Service January 25, 2023 Assessment & Plan (1) Quadriceps tendon rupture: Plan: 57-year-old man with history of polycystic kidney disease (s/p renal transplant), hypertension, and hyperlipidemia who presents for an acute knee injury, presumed bilateral patellar tendon rupture. Bilateral patellar tendon rupture Unknown etiology, though bilateral rupture suggests underlying tendinosis/tendinopathy hx patella tendinitis s/p Bilateral Open Quadriceps Tendon Repair(Bilateral) 01/23/23 - James Calhoun MD. EBL 10cc PT/OT following Awaiting insurance approval for rehab (2) Kidney transplant status, living related donor: Plan: Renal transplant recipient Chronic and stable - follows locally with Dr Gutiérrez, [facility] for transplant history (donor - sister). 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 mycophenolate 750 mg twice daily, tacrolimus 1 mg twice daily Nephrology following appreciate assistance Cr stable on repeat - Monitor AM labs (3) Hypertension: Plan: Chronic and stable Lisinopril 10mg BID (4) Hypercholesteremia: Plan: Chronic and stable Continue Rosuvastatin 10 mg (5) Gout: Plan: Chronic and stable Continue Allopurinol Plan awaiting PT/OT evals, likely needing inpatient rehab monitor labs in AM Admission and Anticipated Discharge Date Admission Date: January 24, 2023 Subjective Patient is awake resting in bed. He has no new complaints today. He thinks he is possibly doing slightly better with PT today. Awaiting insurance approval for rehab. He has no new complaints. Review of Systems Review of Systems: Patient denies any chest pain, SOB, nausea, vomiting, abdominal pain. Physical Exam Constitutional: WD/WN, vitals as above Neck: trachea midline, no thyromegaly Respiratory: normal respiratory effort, lungs clear to auscultation Cardiovascular: RRR, no murmur, no edema Gastrointestinal (Abdomen): normal bowel sounds, soft, nontender, no hepatosplenomegaly Musculoskeletal: brace in place bilateral upper legs Psychiatric: A+Ox3, euthymic affect Results & Data Results & Data Vital Signs (Past 12 Hours) Vital Signs Temp Pulse Resp BP Pulse Ox O2 Del Method 01/25/23 07:22 36.8 C 91 H 18 95/61 L 95 Room Air 01/25/23 04:57 37 C 92 H 18 91/58 L 95 Room Air Laboratory Results Abnormal lab results 01/25/23 01/25/23 Range/Units 07:36 07:36 RBC 3.27 L (4.70-6.10) M/uL Hgb 10.4 L (14.0-18.0) g/dl Hct 30.2 L (42.0-52.0) % Creatinine 1.52 H (0.6-1.4) mg/dl Glucose 106 H (70-99(Fasting)) mg/dl Calcium 8.2 L (8.6-10.3) mg/dl Phosphorus 2.4 L (2.5-4.9) mg/dl PG Care Time/CCT Total # of Minutes Spent Total Time Spent with Patient: Total time spent is greater than 50% in coordination of care (as documented) at patient's floor/unit and/or counseling patient: Coding Level of Care Code 91686 SUB INP/OBS CARE 2/35MIN Diagnoses Quadriceps tendon rupture S76.119A Kidney transplant status, living related donor Z94.0 Hypertension I10 Hypercholesteremia E78.00 Gout M10.9
--- NOTE | 2023-01-25 15:02 | Nephrology Progress Note ---
Date of Service January 25, 2023 Assessment & Plan (1) Kidney transplant status, living related donor: (2) Hypertension: (3) Quadriceps tendon rupture: Plan Dr. 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 On admission creatinine was 1.8. Renal function improved, creatinine back to baseline, electrolyte acceptable. Blood pressure Has been variable and mostly running low probably effect from analgesic. -- continue to hold lisinopril for now. -- continue tacrolimus and mycophenolate home does -- check cbc, renal function, electrolyte tomorrow -- left arm nephrology precaution ( AVF) will follow Admission and Anticipated Discharge Date Admission Date: January 24, 2023 Subjective Jun was seen this morning. surgical pain is much better and he briefly participated with physical therapy and plan to continue physical therapy. Blood pressure has been variable but running low. renal function stable, electrolyte acceptable. Review of Systems Review of Systems: Detailed review of system was otherwise unremarkable. Physical Exam Constitutional: WD/WN, vitals as above + acute distress (with pain) Eyes: + anicteric sclerae Neck: normal visual inspection Respiratory: no respiratory distress Auscultation: lungs clear to auscultation bilaterally Cardiovascular: RRR, no murmur, no edema Skin: no rashes Neurologic: no focal motor deficits Psychiatric: Orientation: alert and oriented x 3 Results & Data Vital Signs (Past 12 Hours) Vital Signs Temp Pulse Resp BP Pulse Ox O2 Del Method 01/25/23 07:22 36.8 C 91 H 18 95/61 L 95 Room Air 01/25/23 04:57 37 C 92 H 18 91/58 L 95 Room Air PG Care Time/CCT Total # of Minutes Spent Total Time Spent with Patient: Total time spent is greater than 50% in coordination of care (as documented) at patient's floor/unit and/or counseling patient: Coding Level of Care Code 08866 SUB INP/OBS CARE 2/35MIN Diagnoses Kidney transplant status, living related donor Z94.0 Hypertension I10 Quadriceps tendon rupture S76.119A
[2023-01-25] MEDS: HYDROmorphone INJ 0.5 MG/0.5 ML SYR IV PRN (16:40)
--- NOTE | 2023-01-25 17:57 | Orthopedic Progress Note ---
Date of Service January 25, 2023 Assessment & Plan (1) Quadriceps tendon rupture: POD 3 bilateral open quadricep tendon repair for acute injuries. Making uncomplicated expected progress. -Continue therapy -OOB with assistance only and with braces locked in extension for now. The braces may come off or be loosened in bed. -Dressing changed once daily and with hygiene. May get wounds wet in shower on POD5 - until then, wash around. Disposition: Acute rehab placement pending. Clear from ortho standpoint to move to next level of care. Please contact me via tigertext with any questions. Discharge instructions and protocol placed in the shoe planner. Subjective Reports improved pain. Feels pretty good standing but taking steps is difficult. Has resumed some work on his laptop. He is aware that referrals been made to [facility] for acute rehabilitation, and that authorization is pending. Review of Systems All systems reviewed & are unremarkable except as noted in HPI & below. Physical Exam BLE: Braces were opened and the Edgar wrap's were taken down. The wounds were well approximated without erythema or drainage. Some mild liliana-incisional edema, as expected. MICHELLE hose were fit with abd over incision. Braces re-fit. Constitutional WD/WN, vitals as above no acute distress and not intoxicated appearing Respiratory normal respiratory effort; no labored breathing Cardiovascular Extremities: normal capillary refill Results & Data Results & Data Laboratory Results . Diagnostic Findings . PG Care Time/CCT Total # of Minutes Spent Total Time Spent with Patient: Total time spent is greater than 50% in coordination of care (as documented) at patient's floor/unit and/or counseling patient: Coding Level of Care Code 33130 Post Operative Follow-Up Diagnoses Quadriceps tendon rupture S76.119A
[2023-01-26] MEDS: oxyCODONE HCL IR 5 MG TAB (IMMEDIATE RELEASE) PO PRN ×3 (01:32→13:01)
[2023-01-26] MEDS: ACETAMINOPHEN 500 MG TAB PO PRN ×2 (03:43→11:47)
[2023-01-26] MEDS: LEVOTHYROXINE SODIUM 75 MCG TABLET PO SCH (05:53)
[2023-01-26] MEDS: DOCUSATE SODIUM/SENNA 50/8.6MG TAB PO SCH (07:56)
[2023-01-26] MEDS: buPROPion XL 300 MG TABCR PO SCH (07:56)
[2023-01-26] MEDS: MYCOPHENOLATE MOFETIL 250 MG CAP PO SCH (07:56)
[2023-01-26] MEDS: TACROLIMUS 1 MG CAP PO SCH (07:56)
[2023-01-26] MEDS: buPROPion XL 150 MG TABCR PO SCH (07:57)
[2023-01-26] MEDS: ROSUVASTATIN CALCIUM 10 MG TAB PO SCH (07:57)
[2023-01-26] MEDS: CHOLECALCIFEROL 1,000 UNITS 25 MCG TAB PO SCH (07:57)
[2023-01-26] MEDS: RIVAROXABAN 10 MG TABLET PO SCH (07:57)
[2023-01-26] MEDS: allopurinoL 100 MG TAB PO SCH (07:58)
[2023-01-26] MEDS: ESCITALOPRAM OXALATE 20 MG TAB PO SCH (07:58)
[2023-01-26] MEDS: MAGNESIUM OXIDE 400 MG TAB PO SCH (07:58)
[2023-01-26] MEDS: METHYLPHENIDATE HCL 10 MG TABLET PO SCH ×2 (08:50→11:47)
[2023-01-26 09:38] LABS: BUN Creatinine Ratio 15.7 (10-20); Calcium 8.7 mg/dl (8.6-10.3); Creatinine Clr Calc Pharmacy 60.6 ml/min; Est GFR (African American) 57.2 ml/min; Est GFR (Non-African American) 49.4 ml/min; Potassium 4.8 mmol/L (3.5-5.1)
--- NOTE | 2023-01-26 11:30 | Discharge Summary ---
Date of Service January 26, 2023 Admission HPI Per Admitting Provider Bandar is a 57-year-old man with past medical history significant for adult polycystic kidney disease (s/p renal transplant surgery), hypothyroidism, gout, hypertension and osteoarthritis, who presented to the emergency room today after sustaining an injury to both of his knees. Patient was descending the stairs at home when he heard a loud pop in his left knee . He then immediately tried to immediately compensate with his other knee, when he heard a pop in that knee and fell backwards onto the stairs. He did not sustain any head injuries nor did he lose consciousness. In the emergency room, labs were notable only for a creatinine of 1.74, which is around his baseline. Bilateral XR knee showed prepatellar soft tissue swelling without acute bony abnormality. He received a dose of IV morphine 4 mg. Ortho pedic surgery was consultedthey recommended patient be admitted for evaluation for possible surgery of patellar tendon rupture. On admission, he reports an improvement in his knee pain. He denies shortness of breath, chest pain, dizziness, headache, nausea, or abdominal pain. Admission Exam Per Admitting Provider General: Well-appearing, alert, interactive, and in no acute distress. Neck: Supple. No lymphadenopathy. Normal ROM. CV: Regular rate and rhythm. Normal S1 and S2. No murmurs gallops or rubs. Respiratory: Normal respiratory effort. Lungs clear to auscultation bilaterally. No crackles, rhonchi, or wheezes. Abdomen: Soft, nondistended abdomen. No bruits heard on auscultation. No tenderness to deep palpation. No guarding or rebound. Extremities: Capillary refill <2 sec. 2+ dp equal bilaterally. No pedal edema. Knee: Mild swelling (L >>R) noted on visual exam. No surrounding hemarthrosis or ecchymosis bilaterally. Moderately tender to palpation bilaterally at suprapatellar aspect of knee. Palpable defect of infrapatellar aspect on the left knee. Unable to perform straight leg test bilaterally. Unable to extend leg at the knee bilaterally. Neuro: Alert and oriented x3. Skin: Clean, dry, and intact. No rashes, bruises, or erythema. Principal Diagnosis Bilateral patellar tendon rupture Discharge Exam Constitutional WD/WN, vitals as above Neck trachea midline, no thyromegaly Respiratory normal respiratory effort, lungs clear to auscultation Cardiovascular RRR, no murmur, no edema Gastrointestinal (Abdomen) normal bowel sounds, soft, nontender, no hepatosplenomegaly Musculoskeletal bilateral braces in place Good capillary refill toes, intact sensation DP, PT pulses +2 symmetric Skin no rashes, warm and dry Psychiatric A+Ox3, euthymic affect Discharge Data Allergies Allergy/AdvReac Type Severity Reaction Status Date / Time No Known Allergies Allergy Verified 01/22/23 00:00 Procedures Performed Operation Date: 01/22/23 10:00 Actual Procedures p Bilateral Open Quadriceps Tendon Repair(Bilateral) - James Calhoun MD Ordered Studies 01/22/23 FL knee LT 1 or 2V Routine FL knee RT 1 or 2V Routine Hospital Course (1) Quadriceps tendon rupture: 57-year-old man with history of polycystic kidney disease (s/p renal transplant), hypertension, and hyperlipidemia who presents for an acute knee injury, presumed bilateral patellar tendon rupture. Bilateral patellar tendon rupture Unknown etiology, though bilateral rupture suggests underlying tendinosi s/tendinopathy hx patella tendinitis s/p Bilateral Open Quadriceps Tendon Repair(Bilateral) 01/23/23 - James Calhoun MD. EBL 10cc PT/OT following Discharge today to acute rehab (2) Kidney transplant status, living related donor: Renal transplant recipient Chronic and stable - follows locally with Dr Gutiérrez, [facility] for transplant history (donor - sister). 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 mycophenolate 750 mg twice daily, tacrolimus 1 mg twice daily Nephrology following appreciate assistance Cr stable on repeat (3) Hypertension: Chronic and stable Lisinopril 10mg BID (4) Hypercholesteremia: Chronic and stable Continue Rosuvastatin 10 mg (5) Gout: Chronic and stable Continue Allopurinol Plan discharge today to [facility] Total Time Total Time Spent Total Time Spent (In Minutes): 35 Discharge Plan Discharge Items Patient Disposition: Transfer Inpatient Rehab Fac Reason For Visit: BILATERAL quadriceps tendon ruptre Discharge Diagnosis: bilateral quadriceps tendon rupture Condition on Discharge: Good Activity: Per Instructions section Non-emergency contact: Primary Care Provider Call non-emergency contact if: you have any medication questions, your symptoms worsen, you have a fever, your wound has increased redness, your wound has increased drainage and your wound pain has increased Follow-up/Referrals: Bereket Nettles [Primary Care Provider] - Diet: Heart Healthy Addtl Attending Provider Instructions: James Calhoun M.D. [facility] [address] [facility], [place] [address] POSTOPERATIVE INSTRUCTIONS - EXTENSOR MECHANISM REPAIR BRACE: Keep the postoperative brace in place unless the limb is fully supported in a resting position. Always wear your brace when walking or standing. You may open your brace for careful hygiene while resting in a supported position. Continue to wear the brace until further instructions at your post-op appointment with Ortho. WEIGHTBEARING: Weightbearing as tolerated means you can bear weight on your legs as your pain allows with the crutches and the brace. Use your crutches for support. Always wear your brace when walking or standing to keep the knee fully extended for any weightbearing. Gradually return to full weightbearing. WOUND CARE: Leave the dressing in place and keep the area clean and dry. After 3 days, you may remove your dressing. DO NOT REMOVE ANY SUTURES or MALDONADO. After removing your dressing, you may begin to to carefully clean around the wound. Keep the incision area dry. Use gentle soap and water around the wound(s) and pat dry. Please cover the incision(s) with a clean, dry dressing until there is no drainage. When there is no drainage (5-7 days), you can shower normally, allowing soap/water to run over the wound. Do not use any ointments or topical medications unless directed by your surgeon. Do not submerse the incisions in water no pools, oceans, lakes, jacuzzis, bathtubs, etc for at least 3 weeks. PAIN CONTROL Use ice (or cryocuff if you have one). Use for 30 minutes per hour when needed. Pain medications as prescribed by your medical team. BLOOD CLOT PREVENTION Continue medication prescribed for at least 6 weeks. CONSTIPATION: Narcotic pain medications can slow down your digestive track, leading to constipation. Stay hydrated. While taking narcotics, the use of stool softeners is recommended. Two over the counter options are: 1. Colace (100mg): take 1-2 tabs twice daily to avoid constipation from OxyIR or other narcotics. 2. Miralax 1 tablespoon in a glass of water 2 times daily until normal bowel movements FOLLOWUP: 1. Ortho Clinic: You should be seen in 10-14 days. Please call immediately to schedule if you do not have an appointment. WHEN TO CALL. If you develop any of the following symptoms, please contact the Orthopedic Clinic at [phone]: Temperature greater than 101 taken twice, difficulty breathing, bleeding, fever and chills, increased pain unrelieved by pain meds, uncomfortable brace, or any other concerns. Addtl Natural Sciences Manager Provider Instructions: James Calhoun MD FAAOS SOMMER [facility] [address] [facility], [place] [address] Quadriceps Tendon Repair Rehabilitation Guide Phase 1 (0 6 weeks): PROTECTION PHASE WBing in full extension with brace locked. ROM: Supported Active flexion to comfortable limit, and Passive Extension only. 0-30 (week 1-2), 0-60 (week 3-4), 0-90 (week 5-6). No passive flexion, only gentle supported active flexion within limits. Straight leg raise in brace OK when comfort allows. Quad sets OK. Assist device (crutches/walker as needed) Focus on gluteal and core strength. Phase 2 (6 12 weeks): MOTION CATHOLIC, GAIT TRAINING WBing with brace open 0 30 degrees. ROM exercises can advance in comfortable range. No passive stretch of extensor mechanism active flexion/gravity assist/heel slides. Assist device (crutches/walker as needed). Phase 3 (12+ weeks): STRENGTH CATHOLIC Advance WBing available in available comfortable range. Brace lockout at limits if needed. Continue ROM exercises 0 90 and advance as pain allows. No passive stretch of extensor mechanism active flexion/gravity assist/heel slides. Assist device (crutches/walker as needed) Rx Xarelto 10mg daily for a total of 6 weeks Pending Studies at Discharge: No Stand-Alone Forms: My [facility] Queryly Skilled Items Patient informed of condition?: Yes DNR: No Discharge Level of Care: Acute rehab Communicable Disease: No Discharge Prognosis: Improving Lines: None Urinary Catheter: No Medications and DC Order Prescriptions: New oxycodone 5 mg Tablet 15 mg PO Q4H PRN (Reason: pain (scale score 7-10)) Qty: 0 0RF oxycodone 5 mg Tablet 10 mg PO Q4H PRN (Reason: pain (scale score 4-6)) Qty: 0 0RF Xarelto 10 mg Tablet 10 mg PO DAILY Qty: 0 0RF Continued tacrolimus 1 mg capsule 1 mg PO BID Qty: 180 3RF rosuvastatin 10 mg tablet 10 mg PO DAILY Qty: 180 3RF mycophenolate mofetil 250 mg capsule 750 mg PO BID Qty: 30 1RF lisinopril 10 mg tablet 10 mg PO BID Qty: 180 3RF coenzyme Q10 100 mg capsule 100 mg PO DAILY levothyroxine 75 mcg tablet 75 mcg PO .Q AFTERNOON cholecalciferol (vitamin D3) [Vitamin D3] 2,000 unit Tablet 2,000 unit PO QAM methylphenidate HCl 20 mg tablet 20 mg PO TID bupropion HCl 150 mg tablet sustained-release 12 hr 150 mg PO QAM escitalopram oxalate 10 mg tablet 20 mg PO QAM magnesium oxide 400 mg (241.3 mg magnesium) tablet 400 mg PO DAILY L-Methylfolate 1 dose PO UD bupropion HCl 300 mg tablet extended release 24 hr 300 mg PO QAM allopurinol 100 mg tablet 100 mg PO QAM Discharge Orders: Discharge Order (Routine); Ordered 01/26/23 Ordered By: Mira Mijares Admission Data Admit Date/Time: 01/24/23 08:56 Attending Provider: Vivek Vasquez Admit Provider: Abdirashid Waite Primary Care Provider: Bereket Nettles Other Providers: Jerod,Health Other Interventions: Discharge Summary Assessment (RN) Last Done: 01/26/23 14:10 Coding Level of Care Code 45202 INP/OBS DISCH >30 MIN Diagnoses Quadriceps tendon rupture S76.119A Kidney transplant status, living related donor Z94.0 Hypertension I10 Hypercholesteremia E78.00 Gout M10.9 Time Spent (min) 35
--- NOTE | 2023-02-01 14:00 | Coding Query ---
CODING QUERY To promote full compliance with coding requirements relating to patient care, provider participation is requested in all cases of bar pointer uncertainty. Please assist us with the question(s) below: Coding Question(s): The record documents conflicting documentation regarding the location where the patient fell down the steps as the H&P documents, " Patient was descending the stairs at home when he heard a loud pop in his left knee . He then immediately tried to immediately compensate with his other knee, when he heard a pop in that knee and fell backwards onto the stairs", however, there is documentation as on the 01/22 Progress Note of, "States he [place] [employer] and felt pop coming down on left and then came down on the right in similar fashion and immediately knew what happened", and documentation on the Orthopedic Consultation of, " [place] and felt his knee give way with a significant pop, and he tried to recover with another step on the right where that knee gave way as well". Please clarify below, the place where the fall down the steps occurred: ( ) at Home (x ) [place] [employer] ( ) Other Location: Please Specify Physician's Response(s): Thank you Nora Pineda Principal Diagnosis: "that condition established after study, to be chiefly responsible for occasioning the admission of the patient to the hospital for care." Co-Existing Principal Diagnosis: "when two or more diagnoses equally meet the criteria for principal diagnosis as determined by the circumstances of admission, diagnostic work up, and/or therapy provided, and the Alphabetic Index, Tabular List, or another coding guideline does not provide sequencing direction, any one of the diagnoses may be sequenced first." "When the physician has documented what appears to be a current diagnosis in the body of the record, but has not included the diagnosis in the final diagnostic statement, the physician should be asked whether the diagnosis should be added." (Source Coding Clinic 2 QTR90. p3-4) NAVDEEP
--- NOTE | 2023-02-01 14:06 | Coding Query ---
CODING QUERY To promote full compliance with coding requirements relating to patient care, provider participation is requested in all cases of sanitation truck cleaner uncertainty. Please assist us with the question(s) below: Coding Question(s): There is documentation of Bilateral Patellar Tendon Rupture and also Bilateral Quadriceps Tendon Rupture, and there is documentation of acute knee injury, and documentation of a fall down stairs, however, there is also documentation of, "Unknown etiology, though bilateral rupture suggests underlying tendinosis/tendinopathy hx patella tendinitis". Due to conflicting documentation, please clarify below, in your clinical opinion, regarding the Bilateral Patellar Tendon Rupture and/or Bilateral Quadriceps Tendon Rupture. ( x) most likely Bilateral Quadriceps Tendon Rupture due to Trauma from falling down stairs ( ) most likely Bilateral Quadriceps Tendon Rupture is NOT due to Trauma and is Nontraumatic rupture ( ) most likely Bilateral Patellar Tendon Rupture due to Trauma from falling down stairs ( ) most likely Bilateral Patellar Tendon Rupture is NOT due to Trauma and is Nontraumatic rupture ( ) Other: Please Specify Physician's Response(s): Thank you Nora Pineda Principal Diagnosis: "that condition established after study, to be chiefly responsible for occasioning the admission of the patient to the hospital for care." Co-Existing Principal Diagnosis: "when two or more diagnoses equally meet the criteria for principal diagnosis as determined by the circumstances of admission, diagnostic work up, and/or therapy provided, and the Alphabetic Index, Tabular List, or another coding guideline does not provide sequencing direction, any one of the diagnoses may be sequenced first." "When the physician has documented what appears to be a current diagnosis in the body of the record, but has not included the diagnosis in the final diagnostic statement, the physician should be asked whether the diagnosis should be added." (Source Coding Clinic 2 QTR90. p3-4) NAVDEEP
== END 2023-01-26 14:13 | DRG 501 ==
LOC: ED 20:05 → 3W 20:05 → SUATTDRO 23:08 → 3W 01-22 02:16